=== PATIENT | female | born 1955 | race Caucasian/White ===

== ENCOUNTER 2016-05-04 17:21 | Inpatient (IN) ==
[2016-05-04] MEDS ORDERED: 0.9 % Sodium Chloride 1,000 ML IVC ONE ×2 (17:41→18:24)
[2016-05-04] MEDS ORDERED: Ipratropium/Albuterol Neb 3 ML IH ONE (17:44)
[2016-05-04] MEDS ORDERED: Ondansetron 4 MG/2 ML VIAL IVP ONE (17:45)
[2016-05-04] MEDS ORDERED: methylPREDNISolone 125 MG/2 ML VIAL IVP ONE (17:45)
--- NOTE | 2016-05-04 17:49 | Emergency Department Note ---
Disposition Clinical Impression: Community acquired pneumonia, COPD exacerbation, Hypoxia Sepsis Qualifiers: Sepsis type: sepsis due to unspecified organism Qualified Code(s): A41.9 - Sepsis, unspecified organism Disposition: Admitted As Inpatient Condition: Serious Time of Disposition: 19:03 SOB HPI - General Chief Complaint: ED Shortness of Breath/Dyspnea Stated Complaint: MARGARET Time Seen by Provider: 05/04/16 17:33 Source: patient, family Limitations: no limitations Nursing Notes Reviewed: Yes Vital Signs Reviewed: Yes - History of Present Illness Patient is a 60-year-old female complains of shortness of breath and productive cough times last night. Patient presents with irregular vital signs of tachycardia 113 bpm, and fever 102.5 and O2 sat of 88% on room air. history of COPD and arrhythmia has pacemaker in place. Patient states she started coughing last night sometime between 8:10 PM which has been productive of green sputum, along with sinus pressure worsened with cough. Patient also states she is having a headache with coughing. Patient's on 3 L oxygen at home. Patient's surveyor hydrographic is Dr. Rojas, patient's primary doctor is Dr. Hickman, - Related Data Home Medications Medication Instructions Recorded Confirmed Atorvastatin [Lipitor] 40 mg PO QAM 12/25/14 05/04/16 Buprenorphine HCl/Naloxone HCl 1 each PO BID 12/25/14 05/04/16 [Suboxone 8 mg-2 mg Sl Film] Diltiazem HCl [Diltiazem 24Hr Cd] 240 mg PO QAM 12/25/14 05/04/16 Lisinopril [Zestril] 40 mg PO QAM 12/25/14 05/04/16 Aclidinium [place] [Tudorza 1 puff IH BID 05/04/16 05/04/16 Pressair] Albuterol Sulfate [Ventolin Hfa] 2 puff IH Q4HR PRN 05/04/16 05/04/16 Omeprazole [PriLOSEC] 40 mg PO DAILY 05/04/16 05/04/16 Tiotropium [Spiriva] 18 mcg IH 0700 05/04/16 05/04/16 Previous Rx's Medication Instructions Recorded Aspirin Enteric Coated [Aspirin EC] 81 mg PO DAILY #30 tablet. 12/28/14 Allergies Allergy/AdvReac Type Severity Reaction Status Date / Time No Known Allergies Allergy Verified 12/25/14 15:38 All systems ED: reviewed and negative except as stated. Constitutional: Reports: fever. Denies: chills, weakness Eyes: Denies: eye pain, eye discharge, vision change ENT ED: Reports: congestion. Denies: ear pain, throat pain Cardiovascular: Denies: chest pain, palpitations, syncope Respiratory: Reports: cough, dyspnea, sputum production (Green and chunky). Denies: wheezes Gastrointestinal: Denies: abdominal pain, nausea, vomiting, diarrhea Genitourinary: Denies: urgency, dysuria Past Medical History - Past Medical History Attestation: Yes The following information was validated with the patient. Source: patient Medical history: Reports: arthritis, asthma, COPD, GERD, hypertension, other Surgical history: Reports: hysterectomy (for cervical carcer.), orthopedic, other (right rotator cuff repair.), pacemaker/AICD (for complete heart block), thyroidectomy (for goiter) Psychiatric history: Reports: anxiety IMAGING CENTER MANAGER history: Reports: no IMAGING CENTER MANAGER history, bilateral tubal ligation - Social History Smoking Status: Current every day smoker Smokeless Tobacco Status: No Alcohol use: Reports: occasionally Drug use: Reports: none Physical Exam Vital Signs Temperature 102.5 F H 05/04/16 17:22 Pulse Rate 119 05/04/16 17:22 Respiratory Rate 20 05/04/16 17:22 Blood Pressure 109/68 05/04/16 17:22 O2 Sat by Pulse Oximetry 88 L 05/04/16 17:22 Temperature 102.5 F H 05/04/16 17:22 Pulse Rate 119 05/04/16 17:22 Respiratory Rate 20 05/04/16 17:22 Blood Pressure 109/68 05/04/16 17:22 O2 Sat by Pulse Oximetry 88 L 05/04/16 17:22 -General Appearance: Patient is a 60-year-old female alert and oriented 3 does not appear to be in acute distress but has an O2 sat 88% requiring oxygen to keep her sats above 90. -Neurological exam: Cranial nerves II-12 intact, no focal deficits observed, strength equal 5/5 bilaterally in upper and lower extremities - Head Head exam: atraumatic, normocephalic, normal inspection - Eye Eye exam: Present: normal appearance, PERRL, EOMI, negative for scleral icterus negative for conjunctival pallor - ENT ENT exam: normal exam, normal oropharynx, mucous membranes dry - Neck Neck exam: Present: normal inspection, full ROM, trachea midline, negative JVD - Chest Chest inspection: Present: Patient has bilateral equal rise and fall of chest wall. Non-tender to palpation. - Respiratory Respiratory exam: Poor air movement upon auscultation of bilateral lung wang up her lower. Cardiovascular Cardiovascular exam: Present: irregular rate, normal rhythm, normal heart sounds , without murmurs rubs or gallops. - Abdominal Exam Abdominal exam: Present: soft, nondistended, Non-Tender light and deep palpation in all quadrants. Bowel sounds normoactive throughout all 4 quadrants. Negative for hyper or hyperresonance. - Extremities Exam Extremities exam: Present: normal inspection, full ROM - Back Exam Back exam: Present: normal inspection, full ROM. Absent: tenderness, CVA tenderness (R), CVA tenderness (L) - Psychiatric Psychiatric exam: Present: normal affect, normal mood - Skin Skin exam: Present: warm, dry, intact, normal color - General Limitations: no limitations General appearance: alert, in no apparent distress Course Course Narrative: Patient seen and examined. Full sepsis workup initiated. DuoNeb 3 and Solu- Medrol 125 mg ordered, 2 L normal saline IV ordered - Reevaluation(s) Reevaluation #1: Patient's having labs drawn and cultures drawn currently. An IV is being set up. Patient has no complaints at this time O2 sat stable on 3 L at 92% Time: 17:55 Reevaluation #2: Patient's cultures are pending from. Checks x-ray shows bilateral emphysema. Patient's suspicious for pneumonia. Patient's WBC is elevated at 15.5. Patient has 3 of 4 for SIRS criteria. Time: 18:20 - Consultations Consultation #1: Dr. Martino has accepted for admission. Time: 19:00 Vital Signs Temperature 102.5 F H 05/04/16 17:22 Pulse Rate 119 05/04/16 17:22 Respiratory Rate 20 05/04/16 17:22 Blood Pressure 109/68 05/04/16 17:22 O2 Sat by Pulse Oximetry 88 L 05/04/16 17:22 Temperature 97.3 F L 05/05/16 04:00 Pulse Rate 64 05/05/16 04:00 Respiratory Rate 18 05/05/16 04:00 Blood Pressure 95/62 05/05/16 04:00 O2 Sat by Pulse Oximetry 94 L 05/05/16 04:00 Oxygen Delivery Oxygen Delivery Nasal Cannula Shortness of Breath/Dyspnea - MDM Narrative Medical decision making narrative: Ms. Perry is a 60-year-old female complains of cough times last night was condition is concerning for COPD exacerbation secondary to infection. Patient has a SIRS criteria for Phoebe tachycardia. Sepsis workup has been initiated. Plan for admission. CBC shows a WBC of 15.5. Patient has hyponatremia 127. Patient's was started on IV therapy of 0.9% normal saline 2 L, DuoNeb 3, and 125 mg of Solu-Medrol. Patient's chest x-ray does not show signs of pneumonia but clinically patient appears to have some pulmonary infection process going on. The patient for COPD exacerbation secondary to community acquired pneumonia with signs of early sepsis and hypoxia and started patient on 2 g of ceftriaxone and 500 mg of azithromycin. Considered PE as well patient's workup. The patient is low risk for PE at this time. If patient's clinical condition worsens with no clear source of infection. Recommend PE workup. Patient is accepted for admission by Dr. Martino. - Medical Records Medical records reviewed: Yes I reviewed the patient's medical records. - Lab Data Lab results reviewed: Yes I reviewed the patient's lab results. Lab results narrative: Short CBC 05/04/16 Range/Units 18:04 WBC 15.5 H (4.3-11.1) K/mcL Hgb 12.6 (11.5-15.4) g/dL Hct 37.4 (35.3-44.9) % Plt Count 312 (140-400) K/mcL Neutrophils # 12.3 H (1.6-8.9) K/mcL BMP 05/04/16 Range/Units 18:04 Sodium 127 L (136-145) mEq/L Potassium 4.1 (3.5-4.5) mEq/L Chloride 93 L (98-109) mEq/L Carbon Dioxide 22 (19-29) mEq/L BUN 6 L (7-20) mg/dL Creatinine 0.72 (0.57-1.11) mg/dL Glucose 96 (70-99) mg/dL Calcium 9.0 (8.6-10.8) mg/dL Cardiac Enzymes 05/04/16 Range/Units 18:04 Troponin I 0.01 (0-0.03) ng/mL Liver Function 05/04/16 Range/Units 18:04 Total Bilirubin 0.5 (0.2-1.2) mg/dL Direct Bilirubin 0.2 (0.0-0.5) mg/dL AST 28 (5-34) Units/L ALT 20 (0-55) Units/L Alkaline Phosphatase 91 (38-126) Units/L Albumin 3.6 (3.5-5.0) g/dL Result diagrams: 05/05/16 04:20 05/05/16 04:20 Lab Results 05/04/16 05/04/16 05/04/16 Range/Units 18:04 18:04 18:04 WBC 15.5 H (4.3-11.1) K/mcL RBC 3.98 (3.82-4.97) M/mcL Hgb 12.6 (11.5-15.4) g/dL Hct 37.4 (35.3-44.9) % MCV 94.0 (83.0-100.0) fL MCH 31.7 (28.0-33.3) pg MCHC 33.7 (31.6-35.5) g/dL RDW 11.8 (11.5-14.5) % Plt Count 312 (140-400) K/mcL MPV 9.1 L (9.4-12.4) fL Immature Gran % 0.5 (0-4) % Seg Neutrophils % 79.4 % Lymphocytes % 9.2 % Monocytes % 10.7 % Eosinophils % 0.0 % Basophils % 0.2 % Neutrophils # 12.3 H (1.6-8.9) K/mcL Lymphocytes # 1.4 (0.6-4.6) K/mcL Monocytes # 1.7 H (0.0-1.3) K/mcL Eosinophils # 0.0 (0.0-0.6) K/mcL Basophils # 0.0 (0.0-0.2) K/mcL PT 11.6 (9.4-12.1) Seconds INR 1.1 APTT 29.2 (26.0-36.0) Seconds Sodium 127 L (136-145) mEq/L Potassium 4.1 (3.5-4.5) mEq/L Chloride 93 L (98-109) mEq/L Carbon Dioxide 22 (19-29) mEq/L BUN 6 L (7-20) mg/dL Creatinine 0.72 (0.57-1.11) mg/dL Est GFR ( Amer) > 60 (> 60) Est GFR (Non-Af Amer) > 60 (> 60) BUN/Creatinine Ratio 8 (6-26) Glucose 96 (70-99) mg/dL Calculated Osmolality 261 L (280-300) Lactic Acid (0.5-2.2) mmol/L Calcium 9.0 (8.6-10.8) mg/dL Phosphorus 3.4 (2.3-4.7) mg/dL Magnesium 1.6 (1.6-2.6) mg/dL Total Bilirubin 0.5 (0.2-1.2) mg/dL Direct Bilirubin 0.2 (0.0-0.5) mg/dL Indirect Bilirubin 0.3 (0.0-1.2) mg/dL AST 28 (5-34) Units/L ALT 20 (0-55) Units/L Alkaline Phosphatase 91 (38-126) Units/L Troponin I (0-0.03) ng/mL Serum Total Protein 7.8 (6.0-8.3) g/dL Albumin 3.6 (3.5-5.0) g/dL Globulin 4.2 H (2.4-3.5) g/dL Albumin/Globulin Ratio 0.9 L (1.1-2.2) 05/04/16 05/04/16 05/04/16 Range/Units 18:04 18:04 18:26 WBC (4.3-11.1) K/mcL RBC (3.82-4.97) M/mcL Hgb (11.5-15.4) g/dL Hct (35.3-44.9) % MCV (83.0-100.0) fL MCH (28.0-33.3) pg MCHC (31.6-35.5) g/dL RDW (11.5-14.5) % Plt Count (140-400) K/mcL MPV (9.4-12.4) fL Immature Gran % (0-4) % Seg Neutrophils % % Lymphocytes % % Monocytes % % Eosinophils % % Basophils % % Neutrophils # (1.6-8.9) K/mcL Lymphocytes # (0.6-4.6) K/mcL Monocytes # (0.0-1.3) K/mcL Eosinophils # (0.0-0.6) K/mcL Basophils # (0.0-0.2) K/mcL PT (9.4-12.1) Seconds INR APTT (26.0-36.0) Seconds Sodium (136-145) mEq/L Potassium (3.5-4.5) mEq/L Chloride (98-109) mEq/L Carbon Dioxide (19-29) mEq/L BUN (7-20) mg/dL Creatinine (0.57-1.11) mg/dL Est GFR ( Amer) (> 60) Est GFR (Non-Af Amer) (> 60) BUN/Creatinine Ratio (6-26) Glucose (70-99) mg/dL Calculated Osmolality (280-300) Lactic Acid 1.5 1.1 (0.5-2.2) mmol/L Calcium (8.6-10.8) mg/dL Phosphorus (2.3-4.7) mg/dL Magnesium (1.6-2.6) mg/dL Total Bilirubin (0.2-1.2) mg/dL Direct Bilirubin (0.0-0.5) mg/dL Indirect Bilirubin (0.0-1.2) mg/dL AST (5-34) Units/L ALT (0-55) Units/L Alkaline Phosphatase (38-126) Units/L Troponin I 0.01 (0-0.03) ng/mL Serum Total Protein (6.0-8.3) g/dL Albumin (3.5-5.0) g/dL Globulin (2.4-3.5) g/dL Albumin/Globulin Ratio (1.1-2.2) - Radiology Data Radiology results reviewed: Yes I reviewed the patient's radiology results. Chest X-Ray 05/04/16 17:42 IMPRESSION: No acute cardiopulmonary process. Emphysema. D/ / 05/04/2016 18:43:12 Tawana Lizarraga MD / [facility] Interpreting Provider: Tawana Lizarraga MD - EKG Data EKG attestation: Yes I reviewed and interpreted this EKG. EKG results narrative: EKG taken 2016 at 1817 hrs. shows a ventricularly paced rhythm is tachycardic at 110 bpm
[2016-05-04] MEDS ORDERED: Azithromycin 500 MG in D5% in Water 250 ML IVPB ONE (17:58)
--- NOTE | 2016-05-04 18:04 | Emergency Department Note ---
START Narrative - START START: I examined this patient and my medical decision-making was reviewed with the STEEPLECHASE JOCKEY/PA/Advanced Practice Nurse/Resident Physician. I agree with the documented findings, disposition and treatment plan as described except to the extent set forth below. Patient emergency department divining a cough shortness of breath. Onset last night. Patient is a history of COPD and still smokes a half-pack a day. Last admission was last summer. Patient on antibiotics since and has not required admission. She wears home O2. On examination she is awake and alert. Lungs are diminished. She is febrile and meets SIRS criteria. Plan. Septic workup. IV fluids. Nebs and steroids. Will admit.
[2016-05-04 18:15] LABS: Basophils % 0.2 %; Hematocrit 37.4 % (35.3-44.9); Hemoglobin 12.6 g/dL (11.5-15.4); Immature Granulocytes % 0.5 % (0-4); Lymphocytes # 1.4 K/mcL (0.6-4.6); Lymphocytes % 9.2 %; Mean Corpuscular HGB Conc 33.7 g/dL (31.6-35.5); Mean Corpuscular Hemoglobin 31.7 pg (28.0-33.3); Mean Platelet Volume 9.1 fL (9.4-12.4); Monocytes # 1.7 K/mcL (0.0-1.3); Monocytes % 10.7 %; Neutrophils # 12.3 K/mcL (1.6-8.9); Platelet Count 312 K/mcL (140-400); Red Blood Count 3.98 M/mcL (3.82-4.97); Red Cell Distribution Width 11.8 % (11.5-14.5); Segmented Neutrophils % 79.4 %
[2016-05-04 18:23] LABS: INR 1.1; Prothrombin Time 11.6 Seconds (9.4-12.1)
[2016-05-04 18:26] LABS: Activated Partial Thrombo Time 29.2 Seconds (26.0-36.0)
[2016-05-04 18:28] LABS: Alanine Aminotransferase 20 Units/L (0-55); Albumin 3.6 g/dL (3.5-5.0); Albumin/Globulin Ratio 0.9 (1.1-2.2); Alkaline Phosphatase 91 Units/L (38-126); Aspartate Amino Transferase 28 Units/L (5-34); BUN/Creatinine Ratio 8 (6-26); Bilirubin,Direct 0.2 mg/dL (0.0-0.5); Bilirubin,Indirect 0.3 mg/dL (0.0-1.2); Bilirubin,Total 0.5 mg/dL (0.2-1.2); Blood Urea Nitrogen 6 mg/dL (7-20); Carbon Dioxide 22 mEq/L (19-29); Chloride 93 mEq/L (98-109); Globulin 4.2 g/dL (2.4-3.5); Glucose 96 mg/dL (70-99); Magnesium 1.6 mg/dL (1.6-2.6); Osmolality,Calculated 261 (280-300); Phosphorous 3.4 mg/dL (2.3-4.7); Potassium 4.1 mEq/L (3.5-4.5); Sodium 127 mEq/L (136-145); Total Protein 7.8 g/dL (6.0-8.3); eGFR For African Americans > 60 (> 60); eGFR For Non-African Americans > 60 (> 60)
[2016-05-04] MEDS ORDERED: Levofloxacin 500 MG/100 ML 500 MG/100 ML BAG IVPB ONE (18:55)
[2016-05-04] MEDS ORDERED: Ondansetron 4 MG/2 ML VIAL IVP PRN (19:19)
[2016-05-04] MEDS ORDERED: *HR* Morphine 2 MG/ML SYRINGE IVP PRN (19:19)
[2016-05-04] MEDS ORDERED: Naloxone 0.4 MG/ML INJ IVP PRN (19:19)
[2016-05-04] MEDS ORDERED: *HR* HYDROcodone/Acet 5/325 mg TABLET PO PRN (19:19)
[2016-05-04] MEDS ORDERED: Acetaminophen 325 MG TABLET PO PRN (19:19)
--- NOTE | 2016-05-04 20:20 | Internal Med History&Physical ---
Date of Encounter: 05/04/16 Time of Encounter: 20:18 Assessment and Plan (1) Sepsis Current visit: Yes Status: Acute Tmax 102.5, with tachycardia, Leukocytosis with left shift, no lactate, BP is WNL. No thrombocytopenia Probable source is pulmonary , with suspected Community acquired pneumonia Follow blood culture Obtain sputum culture Urine for legionella and streptococcal antige Tylenol for fever Continue Ceftriaxone 2g daily, and Azithromycin 500mg IVPB daily Duonebs q4hs Prednisone po IVF hydration Monitor closely High risk due to sepsis with risk of decompensation to severe sepsis and septic shock. Also associated with hypoxemic respiratory failure at risk of mechanical intubation Patient is full code Qualifiers: Sepsis type: sepsis due to unspecified organism Qualified Code(s): A41.9 - Sepsis, unspecified organism (2) Acute respiratory failure with hypoxia Current visit: Yes Status: Acute Improved with supplemental O2, continue same (3) Community acquired pneumonia Current visit: Yes Status: Acute Probable pneumonia, community acquired based on history an d presentation CXR with emphysema. (4) COPD exacerbation Current visit: Yes Status: Acute (5) HLD (hyperlipidemia) Current visit: Yes Status: Chronic resume home meds Qualifiers: Hyperlipidemia type: unspecified Qualified Code(s): E78.5 - Hyperlipidemia , unspecified (6) HTN (hypertension) Current visit: Yes Status: Chronic Resume home meds Qualifiers: Hypertension type: essential hypertension Qualified Code(s): I10 - Essential (primary) hypertension (7) Hyponatremia Current visit: Yes Status: Acute Acute on chronic hypoosmolar Check UA, IVF hydration Monitor Chem (8) ELIUD (obstructive sleep apnea) Current visit: Yes Status: Chronic BiPAP at night (9) Opiate dependence Current visit: Yes Status: Chronic Resume home dose of suboxone Qualifiers: Substance use status: uncomplicated Qualified Code(s): F11.20 - Opioid dependence, uncomplicated (10) Presence of cardiac pacemaker Current visit: Yes Status: Chronic Secondary to complete heart block in 2008 (11) Alcohol abuse Current visit: Yes Status: Chronic No hx if withdrawal, monitor for same (12) Tobacco abuse Current visit: Yes Status: Chronic Refuses NRT Cessation encouraged Internal Medicine - H&P: HPI Chief complaint: Cough Admitted From: Home Plans for Post Hospital Care: Home History of present illness: Ms. Perry is a 60 year old female PMH of COPD on home O2, current smoker, HTN, HLD, ELIUD, Complete heart block s/p PCM Presented to ER with complains of cough productive of thick greenish sputum, fever with chills and shortness of breath worse than baseline. She also reports increasing oxygen requirements at home. Positive history of sick contacts, no preceding flu-like symptoms, she has no received Flu shot this season She denies chest pain, palpitations, nausea, vomiting, night sweats, no change in bowel or urinary habits Past Med Surg Social Fam HX - Past Medical History Medical history: arthritis, asthma, COPD, GERD, hypertension, other Psychiatric history: anxiety - Past Surgical History Surgical History: hysterectomy (for cervical carcer.), orthopedic, other (right rotator cuff repair.), pacemaker/AICD (for complete heart block), thyroidectomy (for goiter) - Social History Smoking Status: Current every day smoker Smokeless Tobacco Status: No Alcohol use: occasionally Drug use: none - Family History Mother Living Status: Still Living Hx Family Cardiac Disorders: Yes Hx Family Respiratory Disorders: Yes Hx Family Cancer: Yes Hx Family Neuromuscular Disorders: (parkinsons) Father Living Status: Hx Family Cardiac Disorders: Yes Internal Medicine - H&P: Meds Atorvastatin [Lipitor] 40 mg PO QAM 12/25/14 [History] Buprenorphine HCl/Naloxone HCl [Suboxone 8 mg-2 mg Sl Film] 1 each PO BID [History] Diltiazem HCl [Diltiazem 24Hr Cd] 240 mg PO QAM 12/25/14 [History] Lisinopril [Zestril] 40 mg PO QAM 12/25/14 [History] Aspirin Enteric Coated [Aspirin EC] 81 mg PO DAILY #30 tablet. 12/28/14 [Rx] Aclidinium [place] [Tudorza Pressair] 1 puff IH BID 05/04/16 [History] Albuterol Sulfate [Ventolin Hfa] 2 puff IH Q4HR PRN 05/04/16 [History] Omeprazole [PriLOSEC] 40 mg PO DAILY 05/04/16 [History] Tiotropium [Spiriva] 18 mcg IH 0700 05/04/16 [History] Allergies No Known Allergies Allergy (Verified 12/25/14 15:38) All Systems PM: A 10-system review of systems was performed and is negative for pertinent findings except as documented above in the HPI. - Constitutional Constitutional: chills, fever(s), lethargy - EENT Eyes: no change in vision, no discharge, no pain, no photophobia Ears: no ear discharge, no ear pain, no tinnitus Nose, mouth and throat: no dysphagia, no nasal discharge, no neck pain, no sore throat - Cardiovascular Cardiovascular ROS IM: no chest pain, no diaphoresis, no dyspnea, no lightheadedness, no palpitations, no syncope - Respiratory Respiratory: as per HPI - Gastrointestinal Gastrointestinal: no abdominal pain, no diarrhea, no hematemesis, no hematochezia, no melena, no nausea, no vomiting - Genitourinary Genitourinary: no change in urinary stream, no dysuria, no flank pain, no hematuria - Musculoskeletal Musculoskeletal ROS IM: no numbness, no tingling - Integumentary Integumentary IM: no rash, no unusual bruising - Neurological Neurological ROS: no confusion, no convulsions, no focal weakness, no numbness, no tingling, no tremor(s) - Hematologic/Lymphatic Hematologic/Lymphatic: no easy bruising - Constitutional Vitals: Temp Pulse Resp BP Pulse Ox 102.5 F H 103 18 112/69 93 L 05/04/16 17:22 05/04/16 18:50 05/04/16 19:39 05/04/16 19:39 05/04/16 18:50 General appearance: Present: A&O X 3, pleasant, no acute distress - Head Head exam: Present: atraumatic, normocephalic - Eye Eye exam: Present: PERRL, conjuntiva pink, sclera anicteric Pupils: Present: PERRL - Neck Neck exam general surgery: Present: supple, trachea midline. Absent: lymphadenopathy - Respiratory Respiratory exam: Present: wheezes - Cardiovascular Cardiovascular exam: Present: RRR, +S1, +S2. Absent: diastolic murmur, gallop, rubs, systolic murmur Additional comments: PCM on chest wall, pocket not tender, no erythema - GI/Abdominal GI/Abdominal exam: Present: normal bowel sounds, soft, no peritoneal signs. Absent: distended, tenderness - Extremities Exam Extremities exam: Present: warm, radial pulses palpable and symetrical. Absent : calf tenderness, cyanotic, pedal edema - Neurological Exam Neurological exam: Present: CN II-XII intact, oriented X3, no focal deficits. Absent: pronater drift, facial droop, speech deficit - Skin Skin exam: Present: dry, intact Internal Med - H&P Results - Labs CBC & Chem 7: 05/04/16 18:04 05/04/16 18:04
[2016-05-04] MEDS: Ipratropium/Albuterol Neb 3 ML IH SCH ×2 (20:34→23:36)
[2016-05-04] MEDS: BUPRENORPHINE PO SCH (22:02)
[2016-05-04] MEDS: NALOXONE PO SCH (22:02)
[2016-05-04] MEDS: TUDORZA IH SCH (22:03)
[2016-05-04] MEDS: 0.9 % Sodium Chloride 1,000 ML IVC SCH (22:13)
[2016-05-05] MEDS: Ipratropium/Albuterol Neb 3 ML IH SCH ×6 (03:26→23:22)
[2016-05-05 05:05] LABS: Basophils % 0.1 %; Hemoglobin 11.1 g/dL (11.5-15.4); Immature Granulocytes % 0.6 % (0-4); Lymphocytes # 0.9 K/mcL (0.6-4.6); Lymphocytes % 6.3 %; Mean Corpuscular HGB Conc 33.6 g/dL (31.6-35.5); Mean Corpuscular Hemoglobin 32.2 pg (28.0-33.3); Mean Corpuscular Volume 95.7 fL (83.0-100.0); Mean Platelet Volume 9.4 fL (9.4-12.4); Monocytes # 0.4 K/mcL (0.0-1.3); Neutrophils # 12.1 K/mcL (1.6-8.9); Platelet Count 254 K/mcL (140-400); Red Blood Count 3.45 M/mcL (3.82-4.97); Red Cell Distribution Width 11.9 % (11.5-14.5)
[2016-05-05 05:15] LABS: BUN/Creatinine Ratio 11 (6-26); Blood Urea Nitrogen 6 mg/dL (7-20); Calcium 8.1 mg/dL (8.6-10.8); Carbon Dioxide 21 mEq/L (19-29); Chloride 102 mEq/L (98-109); Glucose 198 mg/dL (70-99); Osmolality,Calculated 277 (280-300); Sodium 132 mEq/L (136-145); eGFR For African Americans > 60 (> 60); eGFR For Non-African Americans > 60 (> 60)
[2016-05-05 05:20] LABS: Potassium 3.8 mEq/L (3.5-4.5)
[2016-05-05] MEDS: *HR* Enoxaparin 40 MG/0.4 ML SYRINGE SQ SCH (05:20)
[2016-05-05 05:43] LABS: Bilirubin,Urine Negative (Negative); Blood,Urine Negative (Negative); Clarity,Urine Clear (Clear); Color,Urine Yellow (Yellow); Glucose,Urine (UA) 250 mg/dL (Normal); Ketones,Urine Negative (Negative); Leukocyte Esterase,Urine Negative (Negative); Nitrite,Urine Negative (Negative); Protein,Urine Negative (Neg-Trace); Specific Gravity,Urine 1.006 (1.010-1.025); Urobilinogen,Urine Normal (Normal)
[2016-05-05] MEDS: 0.9 % Sodium Chloride 1,000 ML IVC SCH ×2 (08:08→20:18)
[2016-05-05] MEDS: NALOXONE PO SCH ×2 (08:17→20:20)
[2016-05-05] MEDS: TUDORZA IH SCH ×2 (08:17→20:20)
[2016-05-05] MEDS: BUPRENORPHINE PO SCH ×2 (08:17→20:20)
[2016-05-05] MEDS: Aspirin Enteric Coated 81 MG Tablet PO SCH (08:17)
[2016-05-05] MEDS: predniSONE 20 MG TABLET PO SCH (08:18)
--- NOTE | 2016-05-05 08:37 | Internal Med Progress Note ---
<Alexis Gay - Last Filed: 05/05/16 15:45> Date of Encounter: 05/05/16 Time of Encounter: 08:37 - Assessment and plan (1) Community acquired pneumonia Current Visit: Yes Status: Acute Assessment and plan: Sepsis resolved, con't IV abxs, clinically improving, leukocytosis trending down. (2) Sepsis Current Visit: Yes Status: Acute Assessment and plan: Initially she had fever, leukocytosis, tachycardia and tachypnea, now resolved, 2/2 CAP, con't IV abxs, respi virus panel was negative for flu but positive for coronavirus, will stop tamiflu. Qualifiers: Sepsis type: sepsis due to unspecified organism Qualified Code(s): A41.9 - Sepsis, unspecified organism (3) COPD exacerbation Current Visit: Yes Status: Acute Assessment and plan: Con't duoneb, oxygen support, po steroid and iv abxs. (4) Opiate dependence Current Visit: Yes Status: Chronic Assessment and plan: She is on suboxone at home, she needs to bring her own meds since we do not carry it, avoid narcotics. Qualifiers: Substance use status: uncomplicated Qualified Code(s): F11.20 - Opioid dependence, uncomplicated (5) Tobacco abuse Current Visit: Yes Status: Chronic Assessment and plan: Smoking cessation education given. (6) DVT prophylaxis Current Visit: No Status: Acute Assessment and plan: Lovenox SQ. - Subjective Interval history: Pt seen and examined, feels much better than yesterday, still having productive cough, fever resolved. - Constitutional Vitals: Temp Pulse Resp BP Pulse Ox 97.6 F 65 18 106/68 97 05/05/16 07:44 05/05/16 07:44 05/05/16 07:44 05/05/16 07:44 05/05/16 07:44 General appearance: Present: A&O X 3, pleasant, no acute distress - Head Head exam: Present: atraumatic, normocephalic - Eye Eye exam: Present: PERRL, conjuntiva pink, sclera anicteric Pupils: Present: PERRL - Neck Neck exam general surgery: Present: supple, trachea midline. Absent: lymphadenopathy - Respiratory Respiratory exam: Present: decreased breath sounds (diffusely), wheezes (at base b/l). Absent: accessory muscle use, rales, rhonchi - Cardiovascular Cardiovascular exam: Present: RRR, +S1, +S2. Absent: diastolic murmur, gallop, rubs, systolic murmur - GI/Abdominal GI/Abdominal exam: Present: normal bowel sounds, soft, no peritoneal signs. Absent: distended, tenderness - Extremities Exam Extremities exam: Present: warm, radial pulses palpable and symetrical. Absent : calf tenderness, cyanotic, pedal edema - Neurological Exam Neurological exam: Present: CN II-XII intact, oriented X3, no focal deficits. Absent: pronater drift, facial droop, speech deficit - Skin Skin exam: Present: dry, intact Internal Medicine: Result - Labs CBC & Chem 7: 05/05/16 04:20 05/05/16 04:20 Labs: Short CBC 05/05/16 Range/Units 04:20 WBC 13.4 H (4.3-11.1) K/mcL Hgb 11.1 L D (11.5-15.4) g/dL Hct 33.0 L (35.3-44.9) % Plt Count 254 (140-400) K/mcL Neutrophils # 12.1 H (1.6-8.9) K/mcL BMP 05/05/16 04:20 Sodium 132 L Potassium 3.8 Chloride 102 Carbon Dioxide 21 BUN 6 L Creatinine 0.57 Glucose 198 H Calcium 8.1 L Urine 05/05/16 Range/Units 05:30 Urine Color Yellow (Yellow) Urine Clarity Clear (Clear) Urine pH 6.0 (5.0-8.0) pH Units Ur Specific [place] 1.006 L (1.010-1.025) Urine Protein Negative (Neg-Trace) mg/dL Urine Glucose (UA) 250 H (Normal) mg/dL - ABG Interpretation ABG results: PT/INR, D-dimer PT 11.6 Seconds (9.4-12.1) 05/04/16 18:04 Consult Discharge Plan - Plan Referrals: Mayra Ma MD [Primary Care Provider] - <Kip Xiao - Last Filed: 05/05/16 19:31> Date of Encounter: 05/05/16 - Assessment and plan (1) Acute and chronic respiratory failure with hypoxia Current Visit: Yes Status: Acute (2) COPD exacerbation Current Visit: Yes Status: Acute (3) Opiate dependence Current Visit: Yes Status: Chronic Qualifiers: Substance use status: uncomplicated Qualified Code(s): F11.20 - Opioid dependence, uncomplicated (4) Tobacco abuse Current Visit: Yes Status: Chronic - Constitutional Vitals: Temp Pulse Resp BP Pulse Ox 98.1 F 69 18 100/57 91 L 05/05/16 16:18 05/05/16 16:18 05/05/16 16:21 05/05/16 16:18 05/05/16 16:21 Internal Medicine: Result - Labs CBC & Chem 7: 05/05/16 04:20 05/05/16 04:20 Labs: Short CBC 05/05/16 Range/Units 04:20 WBC 13.4 H (4.3-11.1) K/mcL Hgb 11.1 L D (11.5-15.4) g/dL Hct 33.0 L (35.3-44.9) % Plt Count 254 (140-400) K/mcL Neutrophils # 12.1 H (1.6-8.9) K/mcL BMP 05/05/16 04:20 Sodium 132 L Potassium 3.8 Chloride 102 Carbon Dioxide 21 BUN 6 L Creatinine 0.57 Glucose 198 H Calcium 8.1 L Urine 05/05/16 Range/Units 05:30 Urine Color Yellow (Yellow) Urine Clarity Clear (Clear) Urine pH 6.0 (5.0-8.0) pH Units Ur Specific [place] 1.006 L (1.010-1.025) Urine Protein Negative (Neg-Trace) mg/dL Urine Glucose (UA) 250 H (Normal) mg/dL - ABG Interpretation ABG results: ABG ABG pH 7.45 pH Units (7.32-7.45) 05/05/16 11:08 ABG pCO2 37 mmHg (35-45) 05/05/16 11:08 ABG pO2 64 mmHg (85-104) L 05/05/16 11:08 ABG O2 Saturation 93 % (95-98) L 05/05/16 11:08 PT/INR, D-dimer PT 11.6 Seconds (9.4-12.1) 05/04/16 18:04 - Attending Attestation I examined this patient and my medical decision-making was reviewed with the Resident Physician on 05/05/16. I agree with the documented findings, disposition and treatment plan as described except to the extent set forth below. Ms. Perry is currently admitted for acute respiratory failure due to pneumonia/COPD. She remains moderate risk due to potential of worsening respiratory symptoms. Ms. Perry is feeling somewhat better after abx. Still with a lot of cough - productive. No fever now. No aches. Still with headache. Exam Alert. Mod distress with cough. Heart reg Wheeze present No edema I/P 1. Acute on chronic hypoxic resp failure due to COPD, ? PNA 2. Sepsis improving 3. Opiate dependence on Suboxone 4. Tobacco abuse 5. COPD Further diagnoses and plan as above.
[2016-05-05] MEDS ORDERED: D5% in Water 1,000 ML IV PRN (08:38)
[2016-05-05] MEDS ORDERED: Dextrose Gel 15 GM PO PRN ×2 (08:38)
[2016-05-05] MEDS ORDERED: *HR* Dextrose 50 % in Water (Syg) 50 ML SYRINGE IVP PRN (08:38)
[2016-05-05] MEDS ORDERED: Diltiazem CD (24hr) 120 MG CAPSULE PO SCH (09:00)
[2016-05-05] MEDS ORDERED: Lisinopril 20 MG TABLET PO SCH (09:00)
[2016-05-05 09:11] LABS: Hemoglobin A1C 4.9 %
[2016-05-05 11:16] LABS: ABG Base Excess 1.7 mEq/L (-2.0 to 3.0); ABG HCO3 25.7 mEQ/L (21-27); ABG Oxygen Saturation 93 % (95-98); ABG PCO2 37 mmHg (35-45); ABG PH 7.45 pH Units (7.32-7.45); ABG PO2 64 mmHg (85-104); ABG TCO2 26.8 mEq/L (20-26)
[2016-05-05 11:17] LABS: Blood Gas FiO2 32 %
[2016-05-05] MEDS: Benzonatate 100 MG CAPSULE PO SCH ×3 (11:47→20:20)
[2016-05-05] MEDS: Azithromycin 500 MG in D5% in Water 250 ML IVPB SCH (11:47)
--- NOTE | 2016-05-05 14:30 | Electrocardiograph Report ---
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
[2016-05-05 14:55] LABS: Adenovirus Not Detected (Not Detect); Bordetella Pertussis Not Detected (Not Detect); Chlamydophila pneumoniae Not Detected (Not Detect); Coronavirus 229E Not Detected (Not Detect); Coronavirus HKU1 Not Detected (Not Detect); Coronavirus NL63 Not Detected (Not Detect); Coronavirus OC43 ***DETECTED*** (Not Detect); Human Metapneumovirus Not Detected (Not Detect); Human Rhinovirus/Enterovirus Not Detected (Not Detect); Influenza A Subtype 2009 H1 Not Detected (Not Detect); Influenza A Untypeable Not Detected (Not Detect); Influenza B Not Detected (Not Detect); Mycoplasma pneumoniae Not Detected (Not Detect); Parainfluenza Virus 1 Not Detected (Not Detect); Parainfluenza Virus 2 Not Detected (Not Detect); Parainfluenza Virus 3 Not Detected (Not Detect); Parainfluenza Virus 4 Not Detected (Not Detect); Respiratory Syncytial Virus Not Detected (Not Detect)
[2016-05-05] MEDS: Insulin LISPRO 300 UNITS/3 ML VIAL SQ SCH ×3 (17:41→20:18)
[2016-05-06] MEDS: Ipratropium/Albuterol Neb 3 ML IH SCH ×6 (04:07→23:06)
[2016-05-06] MEDS: *HR* Enoxaparin 40 MG/0.4 ML SYRINGE SQ SCH (05:28)
[2016-05-06] MEDS: 0.9 % Sodium Chloride 1,000 ML IVC SCH ×2 (05:29→20:55)
[2016-05-06 05:53] LABS: Basophils % 0.1 %; Hematocrit 31.5 % (35.3-44.9); Hemoglobin 10.3 g/dL (11.5-15.4); Immature Granulocytes % 0.5 % (0-4); Lymphocytes # 1.5 K/mcL (0.6-4.6); Lymphocytes % 7.8 %; Mean Corpuscular HGB Conc 32.7 g/dL (31.6-35.5); Mean Corpuscular Hemoglobin 31.5 pg (28.0-33.3); Mean Corpuscular Volume 96.3 fL (83.0-100.0); Mean Platelet Volume 9.7 fL (9.4-12.4); Monocytes # 0.9 K/mcL (0.0-1.3); Monocytes % 4.8 %; Neutrophils # 16.9 K/mcL (1.6-8.9); Platelet Count 281 K/mcL (140-400); Red Blood Count 3.27 M/mcL (3.82-4.97); Red Cell Distribution Width 11.9 % (11.5-14.5); Segmented Neutrophils % 86.8 %
[2016-05-06 06:08] LABS: BUN/Creatinine Ratio 12 (6-26); Blood Urea Nitrogen 6 mg/dL (7-20); Calcium 7.7 mg/dL (8.6-10.8); Carbon Dioxide 22 mEq/L (19-29); Chloride 107 mEq/L (98-109); Glucose 117 mg/dL (70-99); Osmolality,Calculated 287 (280-300); Potassium 3.3 mEq/L (3.5-4.5); eGFR For African Americans > 60 (> 60); eGFR For Non-African Americans > 60 (> 60)
[2016-05-06 06:11] LABS: Sodium 139 mEq/L (136-145)
[2016-05-06] MEDS: predniSONE 20 MG TABLET PO SCH (08:50)
[2016-05-06] MEDS: Insulin LISPRO 300 UNITS/3 ML VIAL SQ SCH ×4 (08:50→20:57)
[2016-05-06] MEDS: Benzonatate 100 MG CAPSULE PO SCH ×3 (08:50→20:55)
[2016-05-06] MEDS: Aspirin Enteric Coated 81 MG Tablet PO SCH (08:51)
[2016-05-06] MEDS: BUPRENORPHINE PO SCH ×2 (08:54→21:21)
[2016-05-06] MEDS: TUDORZA IH SCH ×2 (08:54→21:21)
[2016-05-06] MEDS: NALOXONE PO SCH ×2 (08:54→21:21)
[2016-05-06] MEDS: Azithromycin 500 MG in D5% in Water 250 ML IVPB SCH (08:54)
--- NOTE | 2016-05-06 09:13 | Internal Med Progress Note ---
<Alexis Gay - Last Filed: 05/06/16 13:32> Date of Encounter: 05/06/16 Time of Encounter: 09:13 - Assessment and plan (1) Community acquired pneumonia Current Visit: Yes Status: Acute Assessment and plan: Clinically worse, still septic, worse leukocytosis, today's two view chest x- ray showed new b/l airspace opacities suspicious for pneumonia, bld and sputum culture negative, will switch to zosyn and levaquin IV. (2) Sepsis Current Visit: Yes Status: Acute Assessment and plan: Worsening leukocytosis, still tachycardic, treat underlying CAP. Qualifiers: Sepsis type: sepsis due to unspecified organism Qualified Code(s): A41.9 - Sepsis, unspecified organism (3) COPD exacerbation Current Visit: Yes Status: Acute Assessment and plan: Con't duoneb, oxygen support, IV steroid and iv abxs. (4) Opiate dependence Current Visit: Yes Status: Chronic Assessment and plan: She is on suboxone at home, she needs to bring her own meds since we do not carry it, avoid narcotics. Qualifiers: Substance use status: uncomplicated Qualified Code(s): F11.20 - Opioid dependence, uncomplicated (5) Tobacco abuse Current Visit: Yes Status: Chronic Assessment and plan: Smoking cessation education given. (6) DVT prophylaxis Current Visit: No Status: Acute Assessment and plan: Lovenox SQ. - Subjective Interval history: Pt seen and examined, no change in SOB and productive cough is somewhat worse, clinically worse. - Constitutional Vitals: Temp Pulse Resp BP Pulse Ox 97.6 F 78 18 129/79 92 L 05/06/16 07:44 05/06/16 07:44 05/06/16 07:55 05/06/16 07:44 05/06/16 07:55 General appearance: Present: cooperative ( ), A&O X 3, pleasant, no acute distress - Head Head exam: Present: atraumatic, normocephalic - Eye Eye exam: Present: PERRL, conjuntiva pink, sclera anicteric Pupils: Present: PERRL - Neck Neck exam general surgery: Present: supple, trachea midline. Absent: lymphadenopathy - Respiratory Respiratory exam: Present: CTAB. Absent: accessory muscle use, rales, rhonchi, wheezes - Cardiovascular Cardiovascular exam: Present: RRR, +S1, +S2. Absent: diastolic murmur, gallop, rubs, systolic murmur - GI/Abdominal GI/Abdominal exam: Present: normal bowel sounds, soft, no peritoneal signs. Absent: distended, tenderness - Extremities Exam Extremities exam: Present: warm, radial pulses palpable and symetrical. Absent : calf tenderness, cyanotic, pedal edema - Neurological Exam Neurological exam: Present: CN II-XII intact, oriented X3, no focal deficits. Absent: pronater drift, facial droop, speech deficit - Skin Skin exam: Present: dry, intact Internal Medicine: Result - Labs CBC & Chem 7: 05/06/16 04:57 05/06/16 04:57 Labs: Short CBC 05/06/16 Range/Units 04:57 WBC 19.5 H (4.3-11.1) K/mcL Hgb 10.3 L (11.5-15.4) g/dL Hct 31.5 L (35.3-44.9) % Plt Count 281 (140-400) K/mcL Neutrophils # 16.9 H (1.6-8.9) K/mcL BMP 05/06/16 04:57 Sodium 139 D Potassium 3.3 L Chloride 107 Carbon Dioxide 22 BUN 6 L Creatinine 0.52 L Glucose 117 H Calcium 7.7 L - ABG Interpretation ABG results: ABG ABG pH 7.45 pH Units (7.32-7.45) 05/05/16 11:08 ABG pCO2 37 mmHg (35-45) 05/05/16 11:08 ABG pO2 64 mmHg (85-104) L 05/05/16 11:08 ABG O2 Saturation 93 % (95-98) L 05/05/16 11:08 PT/INR, D-dimer PT 11.6 Seconds (9.4-12.1) 05/04/16 18:04 Consult Discharge Plan - Plan Referrals: Mayra Ma MD [Primary Care Provider] - <Kip Xiao - Last Filed: 05/06/16 18:27> Date of Encounter: 05/06/16 - Assessment and plan (1) Acute and chronic respiratory failure with hypoxia Current Visit: Yes Status: Acute (2) COPD exacerbation Current Visit: Yes Status: Acute (3) Opiate dependence Current Visit: Yes Status: Chronic Qualifiers: Substance use status: uncomplicated Qualified Code(s): F11.20 - Opioid dependence, uncomplicated (4) Tobacco abuse Current Visit: Yes Status: Chronic - Constitutional Vitals: Temp Pulse Resp BP Pulse Ox 97.8 F 93 16 140/94 94 L 05/06/16 15:08 05/06/16 15:08 05/06/16 16:17 05/06/16 15:08 05/06/16 16:17 Internal Medicine: Result - Labs CBC & Chem 7: 05/06/16 04:57 05/06/16 04:57 Labs: Short CBC 05/06/16 Range/Units 04:57 WBC 19.5 H (4.3-11.1) K/mcL Hgb 10.3 L (11.5-15.4) g/dL Hct 31.5 L (35.3-44.9) % Plt Count 281 (140-400) K/mcL Neutrophils # 16.9 H (1.6-8.9) K/mcL BMP 05/06/16 04:57 Sodium 139 D Potassium 3.3 L Chloride 107 Carbon Dioxide 22 BUN 6 L Creatinine 0.52 L Glucose 117 H Calcium 7.7 L - ABG Interpretation ABG results: ABG ABG pH 7.45 pH Units (7.32-7.45) 05/05/16 11:08 ABG pCO2 37 mmHg (35-45) 05/05/16 11:08 ABG pO2 64 mmHg (85-104) L 05/05/16 11:08 ABG O2 Saturation 93 % (95-98) L 05/05/16 11:08 PT/INR, D-dimer PT 11.6 Seconds (9.4-12.1) 05/04/16 18:04 - Impressions Impressions Chest X-Ray 05/06/16 11:22 IMPRESSION: New bilateral airspace opacities suspicious for pneumonia most significant in the right upper lobe. D/ / Rhianna Stinson MD / Rhianna Stinson MD Interpreting Provider: Rhianna Stinson MD - Attending Attestation I examined this patient and my medical decision-making was reviewed with the Resident Physician. I agree with the documented findings, disposition and treatment plan as described except to the extent set forth below. Ms. Perry is currently admitted for acute on chronic hypoxic respiratory failure and acute exacerbation of COPD. She remains moderate to high risk due to continued respiratory symptoms and failure. Ms. Perry is coughing a lot and having a lot of upper chest congestion. She had some blood streaks in sputum this morning. No GI symptoms. She does have some chest pain with coughing. Not much helping with wheezing today. Exam Alert. Lots of chest congestion in upper airway. Heart tachy. Audible wheeze heard No edema I/P 1. Acute on chronic respiratory failure 2. Acute exac COPD Further diagnoses and plan as above.
[2016-05-06] MEDS: Piperacillin/Tazobactam 3.375 GM in D5% in Water (Mini-Bag+) 100 ML IVPB SCH ×3 (10:25→23:28)
[2016-05-06] MEDS: MethylPREDNISolone 40 MG/ML VIAL IVP SCH ×3 (10:25→23:28)
[2016-05-06] MEDS: Levofloxacin 750 MG/150 ML 750 MG/150 ML BAG IVPB SCH (10:26)
[2016-05-06] MEDS: Acetylcysteine 10% 2 ML INHSOL IH SCH ×4 (11:25→23:06)
[2016-05-06] MEDS: Melatonin 3 MG TABLET PO SCH (21:54)
[2016-05-07] MEDS: Ipratropium/Albuterol Neb 3 ML IH SCH ×7 (04:15→20:11)
[2016-05-07] MEDS: Acetylcysteine 10% 2 ML INHSOL IH SCH ×5 (04:15→20:11)
[2016-05-07 04:53] LABS: Basophils % 0.1 %; Hematocrit 32.6 % (35.3-44.9); Immature Granulocytes % 0.7 % (0-4); Lymphocytes # 0.8 K/mcL (0.6-4.6); Lymphocytes % 4.7 %; Mean Corpuscular HGB Conc 33.7 g/dL (31.6-35.5); Mean Corpuscular Hemoglobin 32.3 pg (28.0-33.3); Mean Corpuscular Volume 95.6 fL (83.0-100.0); Mean Platelet Volume 9.5 fL (9.4-12.4); Monocytes # 0.3 K/mcL (0.0-1.3); Monocytes % 1.9 %; Neutrophils # 15.9 K/mcL (1.6-8.9); Platelet Count 315 K/mcL (140-400); Red Blood Count 3.41 M/mcL (3.82-4.97); Red Cell Distribution Width 11.8 % (11.5-14.5); Segmented Neutrophils % 92.6 %
[2016-05-07] MEDS: *HR* Enoxaparin 40 MG/0.4 ML SYRINGE SQ SCH (05:03)
[2016-05-07 05:08] LABS: BUN/Creatinine Ratio 8 (6-26); Blood Urea Nitrogen 5 mg/dL (7-20); Calcium 8.6 mg/dL (8.6-10.8); Carbon Dioxide 23 mEq/L (19-29); Chloride 104 mEq/L (98-109); Glucose 135 mg/dL (70-99); Osmolality,Calculated 285 (280-300); Potassium 3.9 mEq/L (3.5-4.5); Sodium 138 mEq/L (136-145); eGFR For African Americans > 60 (> 60); eGFR For Non-African Americans > 60 (> 60)
[2016-05-07] MEDS: Albuterol 2.5 MG/3 ML NEBULIZER IH PRN (06:44)
[2016-05-07] MEDS ORDERED: Benzonatate 100 MG CAPSULE PO PRN (07:11)
--- NOTE | 2016-05-07 07:23 | Event Note ---
<Mary Thorpe - Last Filed: 05/07/16 07:13> Date of Encounter: 05/07/16 Time of Encounter: 06:30 Patient had increased dyspnea following ambulation. HR increased to 130s. O2 92 on 3 L. BP 185/115. Pt stated that she couldn't breath and something is "sitting on her chest". Pt complained of substernal chest pain radiating to the neck. EKG with incomplete sensing and capture of pacemaker, evidence of subendocardial ischemia in anterolateral leads. This is a new finding from previous EKG. CTA chest ordered. Echo ordered. Ordered pacemaker interrogation. <Jayy You - Last Filed: 05/11/16 01:37> Date of Encounter: 05/07/16 Patient was visited and interviewed. I examined this patient. Laboratory and radiographic database was reviewed and considered and discussed. My medical decision-making was reviewed with the Resident Physician. I agree with the documented findings, disposition and treatment plan as described except to the extent set forth below. My signature below is to certify that this patient is under my care and that I, or the Resident Physician with me, has had a [id number] encounter with this patient. Abnormal lab results RBC 3.60 M/mcL (3.82-4.97) L 05/08/16 05:33 Hgb 11.4 g/dL (11.5-15.4) L 05/08/16 05:33 Hct 33.7 % (35.3-44.9) L 05/08/16 05:33 ABG pO2 64 mmHg (85-104) L 05/05/16 11:08 ABG Total CO2 26.8 mEq/L (20-26) H 05/05/16 11:08 ABG O2 Saturation 93 % (95-98) L 05/05/16 11:08 Glucose 135 mg/dL (70-99) H 05/07/16 04:36 POC Glucose 126 (58-89) H 05/09/16 11:20 Globulin 4.2 g/dL (2.4-3.5) H 05/04/16 18:04 Albumin/Globulin Ratio 0.9 (1.1-2.2) L 05/04/16 18:04 Ur Specific [place] 1.006 (1.010-1.025) L 05/05/16 05:30 Urine Glucose (UA) 250 mg/dL (Normal) H 05/05/16 05:30 Vancomycin Trough 8.5 mcg/mL (10-20) L 05/08/16 18:53 Coronavirus OC43 (PCR) DETECTED (Not Detect) A 05/08/16 08:40 05/05/16 05/07/16 11:08 08:01 ABG pH 7.45 ABG pCO2 37 ABG pO2 64 L ABG HCO3 25.7 ABG Total CO2 26.8 H ABG O2 Saturation 93 L ABG Base Excess 1.7 VBG pH 7.39 VBG pCO2 41 VBG pO2 40 VBG HCO3 24.8 Chest X-Ray 05/06/16 11:22 IMPRESSION: New bilateral airspace opacities suspicious for pneumonia most significant in the right upper lobe. D/ / Rhianna Stinson MD / Rhianna Stinson MD Interpreting Provider: Rhianna Stinson MD Chest CTA 05/07/16 06:48 IMPRESSION: No evidence of pulmonary embolism or acute pulmonary abnormality. Emphysema. Patchy ground-glass noted within the upper lobes. Findings may represent multifocal pneumonia. Focal scarring which appears nodular in the right upper lobe measuring up to 1.8 cm. Additional smaller scattered nodules. While findings may be infectious or inflammatory, neoplasm also consideration. Recommend short interval follow-up in 1 month with contrast enhanced chest CT or PET-CT. D/ / Angella Finley MD / Angella Finley MD Interpreting Provider: Angella Finley MD
[2016-05-07] MEDS ORDERED: methylPREDNISolone 125 MG/2 ML VIAL IVP STA (07:29)
[2016-05-07] MEDS ORDERED: Vancomycin 1,000 MG in D5% in Water 250 ML IVPB SCH (08:00)
[2016-05-07] MEDS ORDERED: Vancomycin 1,250 MG in D5% in Water 250 ML IVPB ONE (08:00)
--- NOTE | 2016-05-07 08:08 | Internal Med Progress Note ---
<Alexis Gay - Last Filed: 05/07/16 13:24> Date of Encounter: 05/07/16 Time of Encounter: 08:08 - Assessment and plan (1) Community acquired pneumonia Current Visit: Yes Status: Acute Assessment and plan: Clinically slightly better, still septic, leukocytosis improved, vanco was added by night team, CTA of chest showed multifocal pneumonia and 1.8 cm focal scarring nodular in right upper lobe, with hemoptysis, will consult pulm and follow their recommendation, likely she will need f/u CT of chest in several weeks as outpt, con't IV abxs, check MRSA probe. (2) Sepsis Current Visit: Yes Status: Acute Assessment and plan: Leukocytosis better, still tachycardic, treat underlying CAP. Qualifiers: Sepsis type: sepsis due to unspecified organism Qualified Code(s): A41.9 - Sepsis, unspecified organism (3) COPD exacerbation Current Visit: Yes Status: Acute Assessment and plan: Con't duoneb, oxygen support, IV steroid and iv abxs. (4) Opiate dependence Current Visit: Yes Status: Chronic Assessment and plan: She is on suboxone at home, she needs to bring her own meds since we do not carry it, avoid narcotics. Qualifiers: Substance use status: uncomplicated Qualified Code(s): F11.20 - Opioid dependence, uncomplicated (5) Tobacco abuse Current Visit: Yes Status: Chronic Assessment and plan: Smoking cessation education given. (6) DVT prophylaxis Current Visit: No Status: Acute Assessment and plan: IPC. - Subjective Interval history: Pt seen and examined, slightly her SOB is better, still have blood streaked sputum. Chest pain she thinks its from her coughing too much. - Constitutional Vitals: Temp Pulse Resp BP Pulse Ox 97.4 F L 80 17 171/95 90 L 05/07/16 07:04 05/07/16 07:04 05/07/16 07:04 05/07/16 07:04 05/07/16 07:04 General appearance: Present: cooperative, A&O X 3, no acute distress, answers questions appropriately - Head Head exam: Present: atraumatic, normocephalic - Eye Eye exam: Present: PERRL, conjuntiva pink, sclera anicteric Pupils: Present: PERRL - Neck Neck exam general surgery: Present: supple, trachea midline. Absent: lymphadenopathy - Respiratory Respiratory exam: Present: rhonchi (diffusely b/l), wheezes (at base b/l). Absent: accessory muscle use, rales - Cardiovascular Cardiovascular exam: Present: RRR, +S1, +S2. Absent: diastolic murmur, gallop, rubs, systolic murmur - GI/Abdominal GI/Abdominal exam: Present: normal bowel sounds, soft, no peritoneal signs. Absent: distended, tenderness - Extremities Exam Extremities exam: Present: warm, radial pulses palpable and symetrical. Absent : calf tenderness, cyanotic, pedal edema - Neurological Exam Neurological exam: Present: CN II-XII intact, oriented X3, no focal deficits. Absent: pronater drift, facial droop, speech deficit - Skin Skin exam: Present: dry, intact Internal Medicine: Result - Labs CBC & Chem 7: 05/07/16 04:36 05/07/16 04:36 Labs: Short CBC 05/07/16 Range/Units 04:36 WBC 17.1 H (4.3-11.1) K/mcL Hgb 11.0 L (11.5-15.4) g/dL Hct 32.6 L (35.3-44.9) % Plt Count 315 (140-400) K/mcL Neutrophils # 15.9 H (1.6-8.9) K/mcL BMP 05/07/16 04:36 Sodium 138 Potassium 3.9 Chloride 104 Carbon Dioxide 23 BUN 5 L Creatinine 0.64 Glucose 135 H Calcium 8.6 - ABG Interpretation ABG results: ABG ABG pH 7.45 pH Units (7.32-7.45) 05/05/16 11:08 ABG pCO2 37 mmHg (35-45) 05/05/16 11:08 ABG pO2 64 mmHg (85-104) L 05/05/16 11:08 ABG O2 Saturation 93 % (95-98) L 05/05/16 11:08 PT/INR, D-dimer PT 11.6 Seconds (9.4-12.1) 05/04/16 18:04 - Impressions Impressions Chest X-Ray 05/06/16 11:22 IMPRESSION: New bilateral airspace opacities suspicious for pneumonia most significant in the right upper lobe. D/ / Rhianna Stinson MD / Rhianna Stinson MD Interpreting Provider: Rhianna Stinson MD Chest CTA 05/07/16 06:48 IMPRESSION: No evidence of pulmonary embolism or acute pulmonary abnormality. Emphysema. Patchy ground-glass noted within the upper lobes. Findings may represent multifocal pneumonia. Focal scarring which appears nodular in the right upper lobe measuring up to 1.8 cm. Additional smaller scattered nodules. While findings may be infectious or inflammatory, neoplasm also consideration. Recommend short interval follow-up in 1 month with contrast enhanced chest CT or PET-CT. D/ / Angella Finley MD / Angella Finley MD Interpreting Provider: Angella Finley MD Consult Discharge Plan - Plan Referrals: Mayra Ma MD [Primary Care Provider] - <Kip Xiao - Last Filed: 05/08/16 14:54> Date of Encounter: 05/07/16 - Assessment and plan (1) Acute and chronic respiratory failure with hypoxia Current Visit: Yes Status: Acute (2) COPD exacerbation Current Visit: Yes Status: Acute (3) Opiate dependence Current Visit: Yes Status: Chronic Qualifiers: Substance use status: uncomplicated Qualified Code(s): F11.20 - Opioid dependence, uncomplicated (4) Tobacco abuse Current Visit: Yes Status: Chronic - Constitutional Vitals: Temp Pulse Resp BP Pulse Ox 98.0 F 93 16 154/94 93 L 05/08/16 11:00 05/08/16 11:00 05/08/16 11:00 05/08/16 11:00 05/08/16 11:00 Internal Medicine: Result - Labs CBC & Chem 7: 05/08/16 05:33 05/08/16 05:33 Labs: Short CBC 05/08/16 Range/Units 05:33 WBC 9.9 (4.3-11.1) K/mcL Hgb 11.4 L (11.5-15.4) g/dL Hct 33.7 L (35.3-44.9) % Plt Count 342 (140-400) K/mcL Neutrophils # 8.6 (1.6-8.9) K/mcL BMP 05/08/16 05:33 BUN 8 Creatinine 0.61 - ABG Interpretation ABG results: ABG ABG pH 7.45 pH Units (7.32-7.45) 05/05/16 11:08 ABG pCO2 37 mmHg (35-45) 05/05/16 11:08 ABG pO2 64 mmHg (85-104) L 05/05/16 11:08 ABG O2 Saturation 93 % (95-98) L 05/05/16 11:08 PT/INR, D-dimer PT 11.6 Seconds (9.4-12.1) 05/04/16 18:04 - Attending Attestation I examined this patient and my medical decision-making was reviewed with the Resident Physician on 05/07/16. I agree with the documented findings, disposition and treatment plan as described except to the extent set forth below. Ms. Perry is currently admitted for acute exacerbation of COPD and acute on chronic hypoxic respiratory failure. She remains moderate to high risk due to continued pulmonary complications. Ms. Perry had a difficult night. She had more dyspnea and coughing and had more hemoptysis. She has been resting more comfortably this morning. No GI symptoms or other new issues. Exam Alert. Mod resp distress Heart reg Lungs with diffuse wheeze and rhonchi Abd soft No edema I/P 1. Acute on chronic hypoxic resp failure 2. Acute exac COPD 3. Multifocal pneumonia - add Vanc Further diagnoses and plan as above.
[2016-05-07] MEDS: Piperacillin/Tazobactam 3.375 GM in D5% in Water (Mini-Bag+) 100 ML IVPB SCH ×3 (08:09→23:21)
[2016-05-07] MEDS: MethylPREDNISolone 40 MG/ML VIAL IVP SCH ×4 (08:09→23:21)
[2016-05-07] MEDS: Levofloxacin 750 MG/150 ML 750 MG/150 ML BAG IVPB SCH (08:10)
[2016-05-07] MEDS: Aspirin Enteric Coated 81 MG Tablet PO SCH (08:11)
[2016-05-07] MEDS: Insulin LISPRO 300 UNITS/3 ML VIAL SQ SCH ×4 (08:12→22:13)
[2016-05-07] MEDS: NALOXONE PO SCH ×2 (08:14→22:02)
[2016-05-07] MEDS: TUDORZA IH SCH ×2 (08:14→22:02)
[2016-05-07] MEDS: BUPRENORPHINE PO SCH ×2 (08:14→22:02)
[2016-05-07 08:23] LABS: VBG HCO3 24.8 mEq/L (21-27); VBG PH 7.39 pH Units (7.32-7.42)
[2016-05-07] MEDS ORDERED: Diltiazem CD (24hr) 120 MG CAPSULE PO SCH (09:45)
--- NOTE | 2016-05-07 11:54 | Pulmonology Consult Note ---
Date of Encounter: 05/07/16 Time of Encounter: 11:49 Assessment and Plan (1) Abnormal CT scan, chest Current Visit: Yes Status: Acute I reviewed the CT scan of the chest. There are multiple abnormalities. She has bilateral upper lobe predominant infiltrates with reactive adenopathy, which is overall consistent with her clinical presentation of pneumonia. There could be a component of acute lung injury has well. These patchy groundglass infiltrates are superimposed on fairly significant emphysematous changes. There is also a right upper lobe nodular lesion. No previous CT scans for comparison. * Recommend treating for pneumonia followed by repeat CT scan of chest in 6-8 weeks in order to ensure radiographic resolution of infiltrates and stability of nodule * She can follow up with pulmonary at that time (2) Community acquired pneumonia Current Visit: No Status: Acute Severe community-acquired pneumonia. Respiratory viral panel was significant for coronal virus. Although she could have a viral pneumonia, I am concerned for bacterial superinfection given the severity of her disease. * I recommend empiric antibiotics for treatment of community-acquired pneumonia with ceftriaxone and levofloxacin. * If the MRSA nasal probe is negative, recommend discontinuation of vancomycin. * She should be treated with a total 8 day course of antibiotics. * Discussed with respiratory therapy and added flutter valve to assist with mucus clearance (3) Hemoptysis Current Visit: Yes Status: Acute Likely related to her underlying pneumonia. This is not massive hemoptysis. We will continue to follow clinically, and we can consider bronchoscopy next week if this does not resolve. (4) Acute exacerbation of chronic obstructive airways disease Current Visit: No Status: Chronic Agree with empiric treatment as directed by primary service with bronchodilators and steroids. (5) Smoking addiction Current Visit: No Status: Chronic Discussed with patient and counseled her on the importance of smoking cessation. Pulmonary will continue to follow History of Present Illness Consult date: 05/07/16 Requesting physician: Alexis Gay Reason for consult: abnormal CXR/CT Chief complaint: cough History of present illness: 60-year-old white female smoker with a medical history significant for COPD who was admitted to the hospital with pneumonia and acute exacerbation of COPD. The patient reports approximately 2 days of symptoms prior to admission to the hospital. Initially she noted a change in the character of her sputum. Typically she coughs up a vasquez colored sputum but it turned into a green color. Next, she noted progressive dyspnea on exertion to where she was short of breath at rest. Evaluation in the hospital revealed chest imaging concerning for pneumonia. She been treated with steroids, bronchodilators, and antibiotics. Overall, the patient feels better with improvement in her dyspnea on exertion. However, she still has a cough, which is less productive of sputum. She has noted a streak sputum in the past 24 hours. No fevers or chills at this time. She does have pleuritic chest pain. No exertional chest pain or diaphoresis noted. A CT scan of the chest was abnormal-appearing, and pulmonary was consult for further evaluation and management. Past Med Surg Social Fam HX - Past Medical History Medical history: arthritis, asthma, COPD, GERD, hypertension, other Psychiatric history: anxiety - Past Surgical History Surgical History: hysterectomy (for cervical carcer.), orthopedic, other (right rotator cuff repair.), pacemaker/AICD (for complete heart block), thyroidectomy (for goiter) - Social History Smoking Status: Current every day smoker Packs per day: 1/2 Smokeless Tobacco Status: No Alcohol use: occasionally Drug use: none - Family History Mother Living Status: Still Living Hx Family Cardiac Disorders: Yes Hx Family Respiratory Disorders: Yes Hx Family Cancer: Yes Hx Family Neuromuscular Disorders: (parkinsons) Father Living Status: Hx Family Cardiac Disorders: Yes Medications and Allergies Atorvastatin [Lipitor] 40 mg PO QAM 12/25/14 [History] Buprenorphine HCl/Naloxone HCl [Suboxone 8 mg-2 mg Sl Film] 1 each PO BID [History] Diltiazem HCl [Diltiazem 24Hr Cd] 240 mg PO QAM 12/25/14 [History] Lisinopril [Zestril] 40 mg PO QAM 12/25/14 [History] Aspirin Enteric Coated [Aspirin EC] 81 mg PO DAILY #30 tablet. 12/28/14 [Rx] Aclidinium [place] [Tudorza Pressair] 1 puff IH BID 05/04/16 [History] Albuterol Sulfate [Ventolin Hfa] 2 puff IH Q4HR PRN 05/04/16 [History] Omeprazole [PriLOSEC] 40 mg PO DAILY 05/04/16 [History] Tiotropium [Spiriva] 18 mcg IH 0700 05/04/16 [History] Allergies No Known Allergies Allergy (Verified 12/25/14 15:38) All Systems: A 10-system review of systems was performed and is negative for pertinent findings except as documented above in the HPI. Physical Examination Vital Signs: Vital Signs, Last 4 Hours Temp Pulse Resp BP Pulse Ox 05/07/16 11:08 97.5 F L 95 15 161/101 93 L 05/07/16 09:00 92 L General: Ill-appearing female in no acute distress Eyes: nonicteric ENT: oropharynx moist Neck: supple, no lymphadenopathy Lungs: Bilateral rhonchi and expiratory wheezing noted Cardiovascular: regular rate and rhythm Gastrointestinal: normoactive bowel sounds, soft, non-tender, non-distended Integumentary: normal Extremities: no cyanosis, no edema Musculoskeletal: no deformities Neuro: normal mental status, non-focal exam Psych: mood appropriate, affect normal Results - Laboratory Findings CBC and BMP: 05/07/16 04:36 05/07/16 04:36 ABG ABG pH 7.45 pH Units (7.32-7.45) 05/05/16 11:08 ABG pCO2 37 mmHg (35-45) 05/05/16 11:08 ABG pO2 64 mmHg (85-104) L 05/05/16 11:08 ABG O2 Saturation 93 % (95-98) L 05/05/16 11:08 PT/INR, D-dimer PT 11.6 Seconds (9.4-12.1) 05/04/16 18:04 Abnormal lab findings: Abnormal lab results WBC 17.1 K/mcL (4.3-11.1) H 05/07/16 04:36 RBC 3.41 M/mcL (3.82-4.97) L 05/07/16 04:36 Hgb 11.0 g/dL (11.5-15.4) L 05/07/16 04:36 Hct 32.6 % (35.3-44.9) L 05/07/16 04:36 Neutrophils # 15.9 K/mcL (1.6-8.9) H 05/07/16 04:36 ABG pO2 64 mmHg (85-104) L 05/05/16 11:08 ABG Total CO2 26.8 mEq/L (20-26) H 05/05/16 11:08 ABG O2 Saturation 93 % (95-98) L 05/05/16 11:08 BUN 5 mg/dL (7-20) L 05/07/16 04:36 Glucose 135 mg/dL (70-99) H 05/07/16 04:36 POC Glucose 127 (58-89) H 05/06/16 16:32 Globulin 4.2 g/dL (2.4-3.5) H 05/04/16 18:04 Albumin/Globulin Ratio 0.9 (1.1-2.2) L 05/04/16 18:04 Ur Specific [place] 1.006 (1.010-1.025) L 05/05/16 05:30 Urine Glucose (UA) 250 mg/dL (Normal) H 05/05/16 05:30 Coronavirus OC43 (PCR) DETECTED (Not Detect) A 05/05/16 11:55 - Microbiology Findings Microbiology Findings: Microbiology, Last 48 Hours 05/05/16 08:30 Sputum Culture - Final Sputum 05/05/16 05:30 Legionella Antigen - Final Urine,Clean Catch Streptococcus pneumoniae Antigen (M - Final - Clinical Findings Intake & Output: Intake & Output 05/06/16 05/07/16 05/07/16 23:59 07:59 15:59 Intake Total 220 / 220 300 / 300 300 / 300 Output Total 0 / 0 600 / 600 Balance 220 / 220 300 / 300 -300 / -300 Consult Discharge Plan - Plan Referrals: Mayra Ma MD [Primary Care Provider] -
[2016-05-07] MEDS: Vancomycin 1,000 MG in D5% in Water 250 ML IVPB SCH (20:00)
[2016-05-07] MEDS: Melatonin 3 MG TABLET PO SCH (23:21)
[2016-05-08] MEDS: Albuterol 2.5 MG/3 ML NEBULIZER IH PRN ×2 (00:28→07:54)
[2016-05-08] MEDS: Acetylcysteine 10% 2 ML INHSOL IH SCH ×6 (00:28→20:35)
[2016-05-08] MEDS: Ipratropium/Albuterol Neb 3 ML IH SCH ×4 (04:24→20:34)
[2016-05-08 06:25] LABS: Basophils % 0.1 %; Hematocrit 33.7 % (35.3-44.9); Hemoglobin 11.4 g/dL (11.5-15.4); Immature Granulocytes % 0.7 % (0-4); Lymphocytes # 0.9 K/mcL (0.6-4.6); Lymphocytes % 8.7 %; Mean Corpuscular HGB Conc 33.8 g/dL (31.6-35.5); Mean Corpuscular Hemoglobin 31.7 pg (28.0-33.3); Mean Corpuscular Volume 93.6 fL (83.0-100.0); Mean Platelet Volume 9.8 fL (9.4-12.4); Monocytes # 0.4 K/mcL (0.0-1.3); Monocytes % 3.7 %; Neutrophils # 8.6 K/mcL (1.6-8.9); Platelet Count 342 K/mcL (140-400); Red Cell Distribution Width 11.8 % (11.5-14.5); Segmented Neutrophils % 86.8 %
--- NOTE | 2016-05-08 07:48 | Internal Med Progress Note ---
<Alexis Gay - Last Filed: 05/08/16 10:47> Date of Encounter: 05/08/16 Time of Encounter: 07:48 - Assessment and plan (1) Community acquired pneumonia Current Visit: Yes Status: Acute Assessment and plan: Sepsis resolved, clinically much better after restarted on vanco IV, MRSA screening negative but this was obtained today after vanco was added yesterday, if con't to improve, d/c with po abx which covers MRSA. (2) Sepsis Current Visit: Yes Status: Acute Assessment and plan: Resolved. Qualifiers: Sepsis type: sepsis due to unspecified organism Qualified Code(s): A41.9 - Sepsis, unspecified organism (3) COPD exacerbation Current Visit: Yes Status: Acute Assessment and plan: Con't duoneb, oxygen support, IV steroid and iv abxs. (4) Opiate dependence Current Visit: Yes Status: Chronic Assessment and plan: She is on suboxone at home, she needs to bring her own meds since we do not carry it, avoid narcotics. Qualifiers: Substance use status: uncomplicated Qualified Code(s): F11.20 - Opioid dependence, uncomplicated (5) Tobacco abuse Current Visit: Yes Status: Chronic Assessment and plan: Smoking cessation education given. (6) DVT prophylaxis Current Visit: No Status: Acute Assessment and plan: IPC. - Subjective Interval history: Pt seen and examined, clinically better, SOB better, productive cough improved, no chest pain. - Constitutional Vitals: Temp Pulse Resp BP Pulse Ox 98.0 F 87 15 156/94 97 05/08/16 07:16 05/08/16 07:16 05/08/16 07:16 05/08/16 07:16 05/08/16 07:16 General appearance: Present: cooperative, A&O X 3, no acute distress, answers questions appropriately - Head Head exam: Present: atraumatic, normocephalic - Eye Eye exam: Present: PERRL, conjuntiva pink, sclera anicteric Pupils: Present: PERRL - Neck Neck exam general surgery: Present: supple, trachea midline. Absent: lymphadenopathy - Respiratory Respiratory exam: Present: decreased breath sounds, rhonchi (at base b/l), wheezes (diffusely b/l). Absent: accessory muscle use, rales - Cardiovascular Cardiovascular exam: Present: RRR, +S1, +S2. Absent: diastolic murmur, gallop, rubs, systolic murmur - GI/Abdominal GI/Abdominal exam: Present: normal bowel sounds, soft, no peritoneal signs. Absent: distended, tenderness - Extremities Exam Extremities exam: Present: warm, radial pulses palpable and symetrical. Absent : calf tenderness, cyanotic, pedal edema - Neurological Exam Neurological exam: Present: CN II-XII intact, oriented X3, no focal deficits. Absent: pronater drift, facial droop, speech deficit - Skin Skin exam: Present: dry, intact Internal Medicine: Result - Labs CBC & Chem 7: 05/08/16 05:33 05/07/16 04:36 Labs: Short CBC 05/08/16 Range/Units 05:33 WBC 9.9 (4.3-11.1) K/mcL Hgb 11.4 L (11.5-15.4) g/dL Hct 33.7 L (35.3-44.9) % Plt Count 342 (140-400) K/mcL Neutrophils # 8.6 (1.6-8.9) K/mcL - ABG Interpretation ABG results: ABG ABG pH 7.45 pH Units (7.32-7.45) 05/05/16 11:08 ABG pCO2 37 mmHg (35-45) 05/05/16 11:08 ABG pO2 64 mmHg (85-104) L 05/05/16 11:08 ABG O2 Saturation 93 % (95-98) L 05/05/16 11:08 PT/INR, D-dimer PT 11.6 Seconds (9.4-12.1) 05/04/16 18:04 - Impressions Impressions Chest CTA 05/07/16 06:48 IMPRESSION: No evidence of pulmonary embolism or acute pulmonary abnormality. Emphysema. Patchy ground-glass noted within the upper lobes. Findings may represent multifocal pneumonia. Focal scarring which appears nodular in the right upper lobe measuring up to 1.8 cm. Additional smaller scattered nodules. While findings may be infectious or inflammatory, neoplasm also consideration. Recommend short interval follow-up in 1 month with contrast enhanced chest CT or PET-CT. D/ / Angella Finley MD / Angella Finley MD Interpreting Provider: Angella Finley MD Consult Discharge Plan - Plan Referrals: Mayra Ma MD [Primary Care Provider] - <Kip Xiao - Last Filed: 05/08/16 16:46> Date of Encounter: 05/08/16 - Assessment and plan (1) Acute and chronic respiratory failure with hypoxia Current Visit: Yes Status: Acute (2) COPD exacerbation Current Visit: Yes Status: Acute (3) Opiate dependence Current Visit: Yes Status: Chronic Qualifiers: Substance use status: uncomplicated Qualified Code(s): F11.20 - Opioid dependence, uncomplicated (4) Tobacco abuse Current Visit: Yes Status: Chronic - Constitutional Vitals: Temp Pulse Resp BP Pulse Ox 98.0 F 79 15 116/72 93 L 05/08/16 16:06 05/08/16 16:06 05/08/16 16:06 05/08/16 16:06 05/08/16 16:06 Internal Medicine: Result - Labs CBC & Chem 7: 05/08/16 05:33 05/08/16 05:33 Labs: Short CBC 05/08/16 Range/Units 05:33 WBC 9.9 (4.3-11.1) K/mcL Hgb 11.4 L (11.5-15.4) g/dL Hct 33.7 L (35.3-44.9) % Plt Count 342 (140-400) K/mcL Neutrophils # 8.6 (1.6-8.9) K/mcL BMP 05/08/16 05:33 BUN 8 Creatinine 0.61 - ABG Interpretation ABG results: ABG ABG pH 7.45 pH Units (7.32-7.45) 05/05/16 11:08 ABG pCO2 37 mmHg (35-45) 05/05/16 11:08 ABG pO2 64 mmHg (85-104) L 05/05/16 11:08 ABG O2 Saturation 93 % (95-98) L 05/05/16 11:08 PT/INR, D-dimer PT 11.6 Seconds (9.4-12.1) 05/04/16 18:04 - Attending Attestation I examined this patient and my medical decision-making was reviewed with the Resident Physician on 05/08/16. I agree with the documented findings, disposition and treatment plan as described except to the extent set forth below. Ms. Perry is currently admitted for acute on chronic hypoxic resp failure and acute exac COPD. She remains moderate to high risk due to potential for worsening respiratory failure. Ms. Perry is doing much better today with the addition of Vancomycin. She has had no further hemoptysis and slept better. She has less wheeze and is able to bring things up better. Exam Alert. Comfortable Heart reg - not tachy Lungs with less wheeze I/P 1. Acute on chronic hypoxic resp failure 2. Acute exac COPD 3. Hemoptysis Further diagnoses and plan as above. MRSA screen done today (after Vanc started). Will try PO abx to cover MRSA as well.
[2016-05-08] MEDS: MethylPREDNISolone 40 MG/ML VIAL IVP SCH ×3 (08:21→21:17)
[2016-05-08] MEDS: Piperacillin/Tazobactam 3.375 GM in D5% in Water (Mini-Bag+) 100 ML IVPB SCH ×3 (08:21→23:39)
[2016-05-08] MEDS: Vancomycin 1,000 MG in D5% in Water 250 ML IVPB SCH ×2 (08:22→21:17)
[2016-05-08] MEDS: Levofloxacin 750 MG/150 ML 750 MG/150 ML BAG IVPB SCH (08:22)
[2016-05-08] MEDS: Aspirin Enteric Coated 81 MG Tablet PO SCH (08:23)
[2016-05-08] MEDS: Insulin LISPRO 300 UNITS/3 ML VIAL SQ SCH ×4 (08:26→21:18)
[2016-05-08] MEDS: Diltiazem CD (24hr) 240 MG CAPSULE PO SCH (08:27)
[2016-05-08] MEDS: TUDORZA IH SCH ×2 (08:27→21:18)
[2016-05-08] MEDS: NALOXONE PO SCH ×2 (08:27→21:18)
[2016-05-08] MEDS: BUPRENORPHINE PO SCH ×2 (08:27→21:18)
--- NOTE | 2016-05-08 09:00 | Pulmonology Progress Note ---
Date of Encounter: 05/08/16 Time of Encounter: 08:47 Assessment and Plan (1) Abnormal CT scan, chest Current Visit: Yes Status: Acute I reviewed the CT scan of the chest. There are multiple abnormalities. She has bilateral upper lobe predominant infiltrates with reactive adenopathy, which is overall consistent with her clinical presentation of pneumonia. There could be a component of acute lung injury has well. These patchy groundglass infiltrates are superimposed on fairly significant emphysematous changes. There is also a right upper lobe nodular lesion. No previous CT scans for comparison. * Recommend treating for pneumonia followed by repeat CT scan of chest in 6-8 weeks in order to ensure radiographic resolution of infiltrates and stability of nodule * She can follow up with pulmonary at that time (2) Community acquired pneumonia Current Visit: No Status: Acute Severe community-acquired pneumonia. Respiratory viral panel was significant for alfred virus. Although she could have a viral pneumonia, I am concerned for bacterial superinfection given the severity of her disease. * I recommend empiric antibiotics for treatment of community-acquired pneumonia with ceftriaxone and levofloxacin. * If the MRSA nasal probe is negative, recommend discontinuation of vancomycin. * She should be treated with a total 8 day course of antibiotics. * Discussed with respiratory therapy to added flutter valve to assist with mucus clearance (3) Hemoptysis Current Visit: Yes Status: Acute Likely related to her underlying pneumonia. This is not massive hemoptysis. We will continue to follow clinically, and we can consider bronchoscopy next week if this does not resolve. (4) Acute exacerbation of chronic obstructive airways disease Current Visit: No Status: Chronic Agree with empiric treatment as directed by primary service with bronchodilators and steroids. I will transition her to a PO regimen, and I recommend a 2 week prednisone taper. (5) Smoking addiction Current Visit: No Status: Chronic Discussed with patient and counseled her on the importance of smoking cessation. Pulmonary will continue to follow Subjective Principal diagnosis: Pneumonia Interval history: No acute overnight events. Patient reports overall feeling better. She reports less dyspnea at rest. No hemoptysis in the past 24 hours. Minimal sputum production. All systems reviewed and otherwise negative. Objective PUL Vital signs: Last Vital Signs Temp 98.0 F 05/08/16 07:16 Pulse 87 05/08/16 07:16 Resp 15 05/08/16 07:16 BP 156/94 05/08/16 07:16 Pulse Ox 97 05/08/16 07:16 General: Ill-appearing female in no acute distress Eyes: nonicteric ENT: oropharynx moist Neck: supple, no lymphadenopathy Lungs: Bilateral rhonchi and expiratory wheezing noted Cardiovascular: regular rate and rhythm Gastrointestinal: normoactive bowel sounds, soft, non-tender, non-distended Integumentary: normal Extremities: no cyanosis, no edema Musculoskeletal: no deformities Neuro: normal mental status, non-focal exam Psych: mood appropriate, affect normal Results - Laboratory Findings CBC and BMP: 05/08/16 05:33 05/07/16 04:36 ABG ABG pH 7.45 pH Units (7.32-7.45) 05/05/16 11:08 ABG pCO2 37 mmHg (35-45) 05/05/16 11:08 ABG pO2 64 mmHg (85-104) L 05/05/16 11:08 ABG O2 Saturation 93 % (95-98) L 05/05/16 11:08 PT/INR, D-dimer PT 11.6 Seconds (9.4-12.1) 05/04/16 18:04 Abnormal lab findings: Abnormal lab results RBC 3.60 M/mcL (3.82-4.97) L 05/08/16 05:33 Hgb 11.4 g/dL (11.5-15.4) L 05/08/16 05:33 Hct 33.7 % (35.3-44.9) L 05/08/16 05:33 ABG pO2 64 mmHg (85-104) L 05/05/16 11:08 ABG Total CO2 26.8 mEq/L (20-26) H 05/05/16 11:08 ABG O2 Saturation 93 % (95-98) L 05/05/16 11:08 BUN 5 mg/dL (7-20) L 05/07/16 04:36 Glucose 135 mg/dL (70-99) H 05/07/16 04:36 POC Glucose 182 (58-89) H 05/07/16 20:14 Globulin 4.2 g/dL (2.4-3.5) H 05/04/16 18:04 Albumin/Globulin Ratio 0.9 (1.1-2.2) L 05/04/16 18:04 Ur Specific [place] 1.006 (1.010-1.025) L 05/05/16 05:30 Urine Glucose (UA) 250 mg/dL (Normal) H 05/05/16 05:30 Coronavirus OC43 (PCR) DETECTED (Not Detect) A 05/05/16 11:55 - Microbiology Findings Microbiology Findings: Microbiology, Last 48 Hours 05/05/16 08:30 Sputum Culture - Final Sputum - Clinical Findings Intake & Output: Intake & Output 05/07/16 05/08/16 05/08/16 23:59 07:59 15:59 Intake Total 350 / 350 200 / 200 Output Total 1200 / 1200 Balance 350 / 350 -1000 / -1000 Weight 58.7 kg Consult Discharge Plan - Plan Referrals: Mayra Ma MD [Primary Care Provider] -
[2016-05-08 09:59] LABS: Adenovirus Not Detected (Not Detect); Bordetella Pertussis Not Detected (Not Detect); Chlamydophila pneumoniae Not Detected (Not Detect); Coronavirus 229E Not Detected (Not Detect); Coronavirus HKU1 Not Detected (Not Detect); Coronavirus NL63 Not Detected (Not Detect); Coronavirus OC43 ***DETECTED*** (Not Detect); Human Metapneumovirus Not Detected (Not Detect); Human Rhinovirus/Enterovirus Not Detected (Not Detect); Influenza A Subtype 2009 H1 Not Detected (Not Detect); Influenza A Untypeable Not Detected (Not Detect); Influenza B Not Detected (Not Detect); Mycoplasma pneumoniae Not Detected (Not Detect); Parainfluenza Virus 1 Not Detected (Not Detect); Parainfluenza Virus 2 Not Detected (Not Detect); Parainfluenza Virus 3 Not Detected (Not Detect); Parainfluenza Virus 4 Not Detected (Not Detect); Respiratory Syncytial Virus Not Detected (Not Detect)
[2016-05-08 11:32] LABS: BUN/Creatinine Ratio 13 (6-26); Blood Urea Nitrogen 8 mg/dL (7-20); eGFR For African Americans > 60 (> 60); eGFR For Non-African Americans > 60 (> 60)
--- NOTE | 2016-05-08 19:51 | Electrocardiograph Report ---
[facility] Test Date: 2016-05-07 Pat Name: MELISSA MCGREGOR Department: 111 Room: 2NE20 Gender: F Slate Picker: [facility] : 1955 Requested By: Kip Xiao Order Number: [id number] Reading MD: Stef Snow DO Measurements Intervals [place] Rate: 48 P: 71 [place]: 192 QRS: -13 QRSD: 116 T: -52 QT: 439 QTc: 405 Interpretive Statements Demand AV pacing Electronically Signed On 05-08-16 19:50:46 EST by Stef Snow DO
[2016-05-08] MEDS: Melatonin 3 MG TABLET PO SCH (23:39)
[2016-05-09] MEDS: Acetylcysteine 10% 2 ML INHSOL IH SCH ×4 (00:01→11:36)
[2016-05-09 07:35] VITALS: BP 159/116
[2016-05-09] MEDS: Ipratropium/Albuterol Neb 3 ML IH SCH ×2 (07:47→11:36)
[2016-05-09] MEDS ORDERED: Vancomycin 1,500 MG in D5% in Water 250 ML IVPB SCH (08:00)
--- NOTE | 2016-05-09 08:50 | Pulmonology Progress Note ---
Date of Encounter: 05/09/16 Time of Encounter: 08:48 Assessment and Plan (1) Acute and chronic respiratory failure with hypoxia Current Visit: Yes Status: Acute Acute and chronic respiratory failure with hypoxia is due to advanced COPD with exacerbation secondary to infection, community-acquired pneumonia. Given the patient's clinical improvement, I think it is safe to transition to enteral antibiotics and complete a 5 day course total of Levaquin. The patient should also continue to receive supplemental oxygen targeting saturation goal of 88% or greater, systemic steroids with a tapering course over the next 8-10 days and inhaled bronchodilators. I obviously reviewed and reiterated with the patient the importance of smoking cessation. The patient will follow-up with outpatient pulmonary services through [place]. Call if questions [facility] [phone] Code(s): J96.21 - Acute and chronic respiratory failure with hypoxia SNOMED Code(s): 871063867, [id number] Subjective Principal diagnosis: Pneumonia Interval history: The patient notes a significant improvement of her overall sense of well-being as well as respiratory status. She continues to cough chest congestion but currently denies hemoptysis, purulent sputum production fevers or chills. The patient notes an improvement of her activity tolerance. She currently feels safe for discharge and wishes to leave the hospital today. Objective PUL Vital signs: Last Vital Signs Temp 98.1 F 05/09/16 07:29 Pulse 83 05/09/16 07:29 Resp 18 05/09/16 07:29 BP 159/116 05/09/16 07:29 Pulse Ox 95 05/09/16 07:29 General appearance: no acute distress, alert Eyes: nonicteric ENT: oropharynx moist Neck: supple Effort: normal Auscultation: bilateral: diminished breath sounds, wheezes Cardiovascular: regular rate and rhythm Gastrointestinal: normoactive bowel sounds, non-distended Integumentary: normal Extremities: no cyanosis Musculoskeletal: no deformities normal mental status, non-focal exam Results - Laboratory Findings CBC and BMP: 05/08/16 05:33 05/08/16 05:33 ABG ABG pH 7.45 pH Units (7.32-7.45) 05/05/16 11:08 ABG pCO2 37 mmHg (35-45) 05/05/16 11:08 ABG pO2 64 mmHg (85-104) L 05/05/16 11:08 ABG O2 Saturation 93 % (95-98) L 05/05/16 11:08 PT/INR, D-dimer PT 11.6 Seconds (9.4-12.1) 05/04/16 18:04 Abnormal lab findings: Abnormal lab results RBC 3.60 M/mcL (3.82-4.97) L 05/08/16 05:33 Hgb 11.4 g/dL (11.5-15.4) L 05/08/16 05:33 Hct 33.7 % (35.3-44.9) L 05/08/16 05:33 ABG pO2 64 mmHg (85-104) L 05/05/16 11:08 ABG Total CO2 26.8 mEq/L (20-26) H 05/05/16 11:08 ABG O2 Saturation 93 % (95-98) L 05/05/16 11:08 Glucose 135 mg/dL (70-99) H 05/07/16 04:36 POC Glucose 155 (58-89) H 05/08/16 20:14 Globulin 4.2 g/dL (2.4-3.5) H 05/04/16 18:04 Albumin/Globulin Ratio 0.9 (1.1-2.2) L 05/04/16 18:04 Ur Specific [place] 1.006 (1.010-1.025) L 05/05/16 05:30 Urine Glucose (UA) 250 mg/dL (Normal) H 05/05/16 05:30 Vancomycin Trough 8.5 mcg/mL (10-20) L 05/08/16 18:53 Coronavirus OC43 (PCR) DETECTED (Not Detect) A 05/08/16 08:40 - Microbiology Findings Microbiology Findings: Microbiology, Last 48 Hours 05/07/16 08:01 Blood Culture - Preliminary Peripheral Venipuncture No growth. 05/07/16 08:01 Blood Culture - Preliminary Peripheral Venipuncture No growth. 05/05/16 08:30 Sputum Culture - Final Sputum - Clinical Findings Intake & Output: Intake & Output 05/08/16 05/09/16 05/09/16 23:59 07:59 15:59 Intake Total 350 / 350 100 / 100 Balance 350 / 350 100 / 100 Weight 60.2 kg Consult Discharge Plan - Plan Referrals: Mayra Ma MD [Primary Care Provider] -
[2016-05-09] MEDS ORDERED: predniSONE 20 MG TABLET PO SCH (09:00)
[2016-05-09] MEDS: Aspirin Enteric Coated 81 MG Tablet PO SCH (09:39)
[2016-05-09] MEDS: Diltiazem CD (24hr) 240 MG CAPSULE PO SCH (09:41)
[2016-05-09] MEDS: TUDORZA IH SCH (09:42)
[2016-05-09] MEDS: NALOXONE PO SCH (09:42)
[2016-05-09] MEDS: BUPRENORPHINE PO SCH (09:42)
[2016-05-09] MEDS: Insulin LISPRO 300 UNITS/3 ML VIAL SQ SCH (09:43)
--- NOTE | 2016-05-09 11:50 | Discharge Summary ---
Addendum entered and electronically signed by Alexis Gay DO 05/09/16 14:05: Correction: MRSA screening was negative Addendum entered and electronically signed by Alexis Gay DO 05/09/16 13:52: Hospital course: 60 yo female with hx of COPD, came in with productive cough and SOB, CT chest showed multifocal pneumonia, she was started on levaquin, zosyn and vanco IV, once bld culture came back negative, vanco was stopped, soon after she got clinically worse, added back vanco IV and she started to improving, MRSA screening was positive but this was otained after vanco, sepsis resolved with abx, CT of chest showed incidental finding of 1.8 cm of focal scarring in right upper lobe and smaller scattered nodules, she will f/u on her CT chest as outpt, she will go home with po steroid taper and doxycycline to also cover for mrsa. Original Note: <Alexis Gay - Last Filed: 05/09/16 11:47> Date of Encounter: 05/09/16 Time of Encounter: 11:47 - Discharge Diagnosis (1) Community acquired pneumonia Priority: Primary Status: Acute (2) Sepsis Status: Acute Qualifiers: Sepsis type: sepsis due to unspecified organism Qualified Code(s): A41.9 - Sepsis, unspecified organism (3) COPD exacerbation Status: Acute (4) Opiate dependence Status: Chronic Qualifiers: Substance use status: uncomplicated Qualified Code(s): F11.20 - Opioid dependence, uncomplicated (5) Tobacco abuse Status: Chronic (6) DVT prophylaxis Status: Acute - Discharge Medications Prescriptions: Doxycycline 100 mg PO BID 5 Days PredniSONE 10 mg PO DAILY #40 tablet Home Medications: Atorvastatin [Lipitor] 40 mg PO QAM 12/25/14 [History] Buprenorphine HCl/Naloxone HCl [Suboxone 8 mg-2 mg Sl Film] 1 each PO BID [History] Diltiazem HCl [Diltiazem 24Hr Cd] 240 mg PO QAM 12/25/14 [History] Lisinopril [Zestril] 40 mg PO QAM 12/25/14 [History] Aspirin Enteric Coated [Aspirin EC] 81 mg PO DAILY #30 tablet. 12/28/14 [Rx] Aclidinium [place] [Tudorza Pressair] 1 puff IH BID 05/04/16 [History] Albuterol Sulfate [Ventolin Hfa] 2 puff IH Q4HR PRN 05/04/16 [History] Omeprazole [PriLOSEC] 40 mg PO DAILY 05/04/16 [History] Tiotropium [Spiriva] 18 mcg IH 0700 05/04/16 [History] Doxycycline 100 mg PO BID 5 Days 05/09/16 [Rx] PredniSONE 10 mg PO DAILY #40 tablet 05/09/16 [Rx] Allergies/Adverse Reactions: Allergies No Known Allergies Allergy (Verified 12/25/14 15:38) Procedures/tests Complete & Pending: Procedures Performed prior 72 hours Category Date Time Status CTA chest [CT angio chest] [CT] Stat Cat Scan 05/07/16 06:48 Completed ECG 12 lead ECG [ECG] Routine Y 05/07/16 06:56 Completed Date of admission: 05/04/16 19:35 Primary care physician: Mayra Ma MD Consults: 05/06/16 11:22 Consult to Respiratory Therapy [CONS] Routine Reason for Consult: unable to remove excretions Call Completed: Yes 05/07/16 09:40 Consult to Pulmonology [CONS] Routine Consulting Provider: [facility] Reason for Consult: hemoptysis, possible lung neoplasm, multifocal pneumonia Call Completed: Yes 05/07/16 11:41 Consult to Respiratory Therapy [CONS] Routine Reason for Consult: please institute flutter valve (acapella device) TID + prn for mucous clearance Call Completed: No Discharging clinician: Alexis Gay Anticipated date of discharge: 05/09/16 - Patient Status Disposition: Home, Self-Care Condition: Good Functional capacity at discharge: independent ambulation Overall status at discharge: patient is progressing back to baseline - Discharge Instructions Instructions: Doxycycline (By mouth), Prednisone (By mouth), Chronic Obstructive Pulmonary Disease (DC), Pneumonia (DC) Follow Up With: Mayra Ma MD [Primary Care Provider] - 05/16/16 10:00 am (F/u in a week for hospital d/c f/u.) Annette Saravia MD [Partnered Physician] - (the offfice will call you with this appointment in 2-3 months) - Diet and Activity Activity: resume usual activities as tolerated Diet: low fat, low cholesterol Hospital course: Ms. Perry is a 60 year old female - Time Spent with Patient Total time spent providing and/or coordinating discharge services: - Constitutional Vitals: Temp Pulse Resp BP Pulse Ox 98.1 F 83 18 159/116 95 05/09/16 07:29 05/09/16 07:29 05/09/16 07:29 05/09/16 07:29 05/09/16 07:29 General appearance: Present: cooperative, A&O X 3, no acute distress, answers questions appropriately <Kip Xiao - Last Filed: 05/09/16 13:12> Date of Encounter: 05/09/16 - Discharge Diagnosis (1) Acute and chronic respiratory failure with hypoxia Priority: Primary Status: Acute (2) COPD exacerbation Priority: Primary Status: Acute (3) Opiate dependence Priority: Secondary Status: Chronic Qualifiers: Substance use status: uncomplicated Qualified Code(s): F11.20 - Opioid dependence, uncomplicated (4) Tobacco abuse Priority: Secondary Status: Chronic (5) Hemoptysis Priority: Secondary Status: Acute (6) Presence of cardiac pacemaker Priority: Secondary Status: Chronic (7) HTN (hypertension) Priority: Secondary Status: Chronic Qualifiers: Hypertension type: essential hypertension Qualified Code(s): I10 - Essential (primary) hypertension (8) HLD (hyperlipidemia) Priority: Secondary Status: Chronic Qualifiers: Hyperlipidemia type: mixed hyperlipidemia Qualified Code(s): E78.2 - Mixed hyperlipidemia Procedures/tests Complete & Pending: Procedures Performed prior 72 hours Category Date Time Status CTA chest [CT angio chest] [CT] Stat Cat Scan 05/07/16 06:48 Completed ECG 12 lead ECG [ECG] Routine Y 05/07/16 06:56 Completed Date of admission: 05/04/16 19:35 Primary care physician: Mayra Ma MD Consults: 05/06/16 11:22 Consult to Respiratory Therapy [CONS] Routine Reason for Consult: unable to remove excretions Call Completed: Yes 05/07/16 09:40 Consult to Pulmonology [CONS] Routine Consulting Provider: [facility] Reason for Consult: hemoptysis, possible lung neoplasm, multifocal pneumonia Call Completed: Yes 05/07/16 11:41 Consult to Respiratory Therapy [CONS] Routine Reason for Consult: please institute flutter valve (acapella device) TID + prn for mucous clearance Call Completed: No Hospital course: Ms. Perry is a 60 year old female - Time Spent with Patient Total time spent providing and/or coordinating discharge services: 38min - Constitutional Vitals: Temp Pulse Resp BP Pulse Ox 98.1 F 83 18 159/116 95 05/09/16 07:29 05/09/16 07:29 05/09/16 07:29 05/09/16 07:29 05/09/16 07:29 - Attending Attestation I examined this patient and my medical decision-making was reviewed with the Resident Physician on 05/09/16. I agree with the documented findings, disposition and treatment plan as described except to the extent set forth below. Ms. Perry is nearly at baseline at this time. She slept OK. No further hemoptysis. No fever. BP good. Exam Alert. Comfortable Heart reg No wheeze Plan D/C today Follow up with PCP and pulm Smoking cessation Repeat CT in 4-6 weeks.
[2016-05-09] MEDS ORDERED: FLU VACC QS2016-17 36MOS UP/PF 0.5 ML SYRINGE IM ONE (12:04)
[2016-05-09] MEDS ORDERED: Aminoglycoside Consult 1 EACH MC ONE (12:54)
== END 2016-05-09 12:55 | disposition home or self-care (01) | DRG 720 ==
LOC: EMEROO 17:21 → 2NENU 19:35
PROVIDERS: ADMIT Internal Medicine; ATTEND Internal Medicine

== ENCOUNTER 2017-02-13 09:25 | Observation (INO) ==
[2017-02-13] MEDS ORDERED: Aspirin 81 MG TAB.CHEW PO ONE (09:28)
[2017-02-13 09:43] LABS: Basophils % 0.4 %; Eosinophils # 0.2 K/mcL (0.0-0.6); Eosinophils % 1.6 %; Hematocrit 39.5 % (35.3-44.9); Hemoglobin 13.4 g/dL (11.5-15.4); Immature Granulocytes % 0.4 % (0-4); Immature Platelets 2.3 % (1.1-6.1); Lymphocytes # 2.5 K/mcL (0.6-4.6); Lymphocytes % 25.2 %; Mean Corpuscular HGB Conc 33.9 g/dL (31.6-35.5); Mean Corpuscular Hemoglobin 31.1 pg (28.0-33.3); Mean Corpuscular Volume 91.6 fL (83.0-100.0); Mean Platelet Volume 8.8 fL (9.4-12.4); Monocytes # 0.8 K/mcL (0.0-1.3); Monocytes % 8.2 %; Neutrophils # 6.4 K/mcL (1.6-8.9); Platelet Count 424 K/mcL (140-400); Red Blood Count 4.31 M/mcL (3.82-4.97); Red Cell Distribution Width 11.6 % (11.5-14.5); Segmented Neutrophils % 64.2 %
--- NOTE | 2017-02-13 09:46 | Emergency Department Note ---
Disposition Clinical Impression: Chest pain of uncertain etiology Disposition: Admitted As Inpatient Condition: Fair Referrals: Alvin Guevara MD [Primary Care Provider] - Forms: ED Satisfaction Letter Time of Disposition: 12:56 Chest Pain HPI - General Chief Complaint: ED Chest Pain Stated Complaint: HTN Time Seen by Provider: 02/13/17 09:28 Source: patient Limitations: no limitations Vital Signs Reviewed: Yes Nursing Notes Reviewed: Yes - History of Present Illness HPI Narrative: Mrs. Perry, 61-year-old female, presents from home via EMS for evaluation of , "chest fullness." Onset 1 hour prior to arrival. She has difficulty explaining the pain other than a painful fullness. She denies shortness or stabbing, dullness, or heaviness. Nonradiating. Does not have associated nausea, vomiting, tingling, weakness, diaphoresis, dyspnea. She is currently experiencing her symptoms. She is also concerned as her blood pressure was systolic 171 and round PMH: Third-degree block with pacemaker in place. Hypertension. COPD. No history of ACS. Habits: Current every day smoker Severity scale (1-10): 5 - Related Data Home Medications Medication Instructions Recorded Confirmed Atorvastatin [Lipitor] 40 mg PO QAM 12/25/14 02/13/17 Buprenorphine HCl/Naloxone HCl 1 each PO BID 12/25/14 02/13/17 [Suboxone 8 mg-2 mg Sl Film] Diltiazem HCl [Diltiazem 24Hr Cd] 240 mg PO QAM 12/25/14 02/13/17 Lisinopril [Zestril] 40 mg PO QAM 12/25/14 02/13/17 Albuterol Sulfate [Ventolin Hfa] 2 puff IH Q4HR PRN 05/04/16 02/13/17 Amitriptyline [Elavil] 25 mg PO HS 02/13/17 02/13/17 Fluticasone/Vilanterol [Breo 1 puff IH DAILY 02/13/17 02/13/17 Ellipta 100-25 Mcg INH] Montelukast [Singulair] 10 mg PO DAILY 02/13/17 02/13/17 Omeprazole [PriLOSEC] 20 mg PO DAILY 02/13/17 02/13/17 Tizanidine HCl 4 mg PO TID 02/13/17 02/13/17 Previous Rx's Medication Instructions Recorded Aspirin Enteric Coated [Aspirin EC] 81 mg PO DAILY #30 tablet. 12/28/14 Allergies Allergy/AdvReac Type Severity Reaction Status Date / Time No Known Allergies Allergy Verified 12/25/14 15:38 All systems ED: reviewed and negative except as stated. Review of Systems: As Per HPI Chest Pain PMH - Past Medical History Medical history: Reports: arthritis, asthma, COPD, GERD, hypertension, other Surgical history: Reports: hysterectomy (for cervical carcer.), orthopedic, other (right rotator cuff repair.), pacemaker/AICD (for complete heart block), thyroidectomy (for goiter) Psychiatric history: Reports: anxiety [employer] history: Reports: bilateral tubal ligation - Social History Smoking Status: Current every day smoker Alcohol use: Reports: occasionally Drug use: Reports: prescription drug abuse Physical Exam Vital Signs Reviewed General: Patient is alert, oriented, and in mild distress from her nausea. HEENT: No facial asymmetry. Head is normocephalic and atraumatic. PERRLA. Oral mucosa moist. Trachea midline. Cardiovascular: Heart regular rate and rhythm without clicks, rubs, gallops, or murmurs. No JVD. PMI nondisplaced. No pedal edema. Bilateral radial posterior tibial pulses 2/4 and equal. Respiratory: Symmetric chest rise with poor respiratory effort. Prolonged expiratory phase. Bilateral breath sounds are clear without wheezing, crackles , or rhonchi. Abdomen: Bowel sounds present normoactive x-4 quadrants. Abdomen is soft, nondistended, and nontender. No organomegaly noted. Musculoskeletal: Spontaneously moving all extremities. No chest wall tenderness to palpation. Skin: Warm, dry, intact. Psych: Patient's affect is appropriate for situation. - General Limitations: no limitations General appearance: alert Course Course Narrative: Patient story is concerning for possible ACS. Chronic risk factors include previous cardiac disease with pacemaker place making EKG unreliable. Also occurring every day smoker. Additionally, PE is a possibility given patient's current workup for suspicious breast mass. While d-dimer. D-dimer is elevated. We will CTA. No renal insufficiency. EKG morphologically unchanged from previous. Initial troponin 0. Chest x-ray unremarkable. After discussing with the patient her risk factors and the initial troponin level being within the nondiagnostic or no, she agrees to admission for chest pain rule out ACS. I discussed the patient with the admitting hospitalist, Dr. Loera, who agrees to accept the patient for continued evaluation and management. Vital Signs Temperature 98.2 F 02/13/17 09:27 Pulse Rate 91 02/13/17 09:27 Respiratory Rate 14 02/13/17 09:27 Blood Pressure 149/93 02/13/17 09:27 O2 Sat by Pulse Oximetry 97 02/13/17 09:27 Temperature 98.2 F 02/13/17 09:27 Pulse Rate 82 02/13/17 10:48 Respiratory Rate 12 02/13/17 10:48 Blood Pressure 120/73 02/13/17 10:48 O2 Sat by Pulse Oximetry 97 02/13/17 10:48 Oxygen Delivery Oxygen Delivery Room Air Chest Pain - Medical Records Medical records reviewed: Yes I reviewed the patient's medical records. - Lab Data Lab results reviewed: Yes I reviewed the patient's lab results. Result diagrams: 02/13/17 09:34 02/13/17 09:34 Lab Results 02/13/17 02/13/17 02/13/17 Range/Units 09:34 09:34 09:34 WBC 9.9 (4.3-11.1) K/mcL RBC 4.31 (3.82-4.97) M/mcL Hgb 13.4 (11.5-15.4) g/dL Hct 39.5 (35.3-44.9) % MCV 91.6 (83.0-100.0) fL MCH 31.1 (28.0-33.3) pg MCHC 33.9 (31.6-35.5) g/dL RDW 11.6 (11.5-14.5) % Plt Count 424 H (140-400) K/mcL MPV 8.8 L (9.4-12.4) fL Immature Gran % 0.4 (0-4) % Seg Neutrophils % 64.2 % Lymphocytes % 25.2 % Monocytes % 8.2 % Eosinophils % 1.6 % Basophils % 0.4 % Neutrophils # 6.4 (1.6-8.9) K/mcL Lymphocytes # 2.5 (0.6-4.6) K/mcL Monocytes # 0.8 (0.0-1.3) K/mcL Eosinophils # 0.2 (0.0-0.6) K/mcL Basophils # 0.0 (0.0-0.2) K/mcL Immature Plt Fraction 2.3 (1.1-6.1) % PT 10.1 (9.4-12.1) Seconds INR 0.9 APTT 29.1 (26.0-36.0) Seconds D-Dimer (0-500) ng/mLFEU Sodium 131 L (136-145) mEq/L Potassium 3.8 (3.5-4.5) mEq/L Chloride 97 L (98-109) mEq/L Carbon Dioxide 21 (19-29) mEq/L BUN 7 (7-20) mg/dL Creatinine 0.73 (0.57-1.11) mg/dL Est GFR ( Amer) > 60 (> 60) Est GFR (Non-Af Amer) > 60 (> 60) BUN/Creatinine Ratio 10 (6-26) Glucose 126 H (70-99) mg/dL Calculated Osmolality 272 L (280-300) Calcium 9.3 (8.6-10.8) mg/dL Troponin I (0-0.03) ng/mL 02/13/17 02/13/17 Range/Units 09:34 09:34 WBC (4.3-11.1) K/mcL RBC (3.82-4.97) M/mcL Hgb (11.5-15.4) g/dL Hct (35.3-44.9) % MCV (83.0-100.0) fL MCH (28.0-33.3) pg MCHC (31.6-35.5) g/dL RDW (11.5-14.5) % Plt Count (140-400) K/mcL MPV (9.4-12.4) fL Immature Gran % (0-4) % Seg Neutrophils % % Lymphocytes % % Monocytes % % Eosinophils % % Basophils % % Neutrophils # (1.6-8.9) K/mcL Lymphocytes # (0.6-4.6) K/mcL Monocytes # (0.0-1.3) K/mcL Eosinophils # (0.0-0.6) K/mcL Basophils # (0.0-0.2) K/mcL Immature Plt Fraction (1.1-6.1) % PT (9.4-12.1) Seconds INR APTT (26.0-36.0) Seconds D-Dimer 1655 H (0-500) ng/mLFEU Sodium (136-145) mEq/L Potassium (3.5-4.5) mEq/L Chloride (98-109) mEq/L Carbon Dioxide (19-29) mEq/L BUN (7-20) mg/dL Creatinine (0.57-1.11) mg/dL Est GFR ( Amer) (> 60) Est GFR (Non-Af Amer) (> 60) BUN/Creatinine Ratio (6-26) Glucose (70-99) mg/dL Calculated Osmolality (280-300) Calcium (8.6-10.8) mg/dL Troponin I 0.00 (0-0.03) ng/mL - Radiology Data Radiology results reviewed: Yes I reviewed the patient's radiology results. Chest X-Ray 02/13/17 09:28 IMPRESSION: No active cardiopulmonary disease D/ / Modesto Ortez MD / Modesto Ortez MD Interpreting Provider: Modesto Ortez MD - EKG Data EKG attestation: Yes I reviewed and interpreted this EKG. EKG results narrative: EKG dated 02/13/17 at 09:29 interpreted as ventricularly paced. Tachycardic with a rate of 108. Normal intervals. Wave forms morphologically unchanged from previous EKG dated 05/07/2016. Heart Score - Score History: Slightly Suspicious EKG: Non Specific repolarisation Disturbance Age: 45-65 Risk Factors: Equal/Greater than 3 risk factor or history of atherosclerotic disease Troponin: Less than normal limit HEART Score Total: 4 Attestation Statement - Attestation Attestation: I examined this patient and my medical decision-making was reviewed with the Resident Physician. I agree with the documented findings, disposition and treatment plan as described except to the extent set forth below. Patient presents to the ED with a chief complaint of chest and left arm pain. She states she has been having some aching in the left upper arm. Today she had sharp pain in the cervical chest. She states she got tight in her neck and jaw as well. She is trying to attribute the pain to a bump in her left arm that she has had for a year. Cardiac history of a third-degree heart block. She states her heart catheter at that time in 2008 at [facility] in her arteries" were fine." On examination she is in no acute distress. Her lungs are clear. Her blood pressure is good here in the 120 systolic. She is pain-free in her chest on my evaluation. Plan. Cardiac workup including a d-dimer as she is currently being evaluated for possible breast mass.
[2017-02-13 09:51] LABS: INR 0.9; Prothrombin Time 10.1 Seconds (9.4-12.1)
[2017-02-13 09:53] LABS: Activated Partial Thrombo Time 29.1 Seconds (26.0-36.0)
[2017-02-13 09:55] LABS: BUN/Creatinine Ratio 10 (6-26); Blood Urea Nitrogen 7 mg/dL (7-20); Calcium 9.3 mg/dL (8.6-10.8); Carbon Dioxide 21 mEq/L (19-29); Chloride 97 mEq/L (98-109); Glucose 126 mg/dL (70-99); Osmolality,Calculated 272 (280-300); Potassium 3.8 mEq/L (3.5-4.5); Sodium 131 mEq/L (136-145); eGFR For African Americans > 60 (> 60); eGFR For Non-African Americans > 60 (> 60)
[2017-02-13] MEDS ORDERED: Naloxone 0.4 MG/ML INJ IVP PRN (14:45)
--- NOTE | 2017-02-13 15:33 | Internal Med History&Physical ---
Date of Encounter: 02/13/17 Time of Encounter: 15:23 Assessment and Plan (1) Chest pain Current visit: Yes Status: Acute Patient experienced midsternal chest pressure this a.m. notes blood pressure was elevated she took her blood pressure medicine as well as is given aspirin. Her chest pressure resolved and blood pressure normalized. Suspect chest pain related to hypertension. Patient has had a history of complete heart block with pacemaker and ICD placement. She did have a cardiac stress test in 2014 which she states was negative. First troponin was 0 we will continue to trend troponins 2 we will continue aspirin and statin 3 nitrates as needed for chest pain 4 continuous cardiac monitoring 5. No chest pain or elevation in troponin we will perform cardiac stress test as outpatient-patient to follow up with customer counter associate Mouna Rojas Qualifiers: Chest pain type: unspecified Qualified Code(s): R07.9 - Chest pain, unspecified (2) HTN (hypertension) Current visit: No Status: Chronic Presently controlled patient states she had elevated blood pressure this a.m. and experienced chest pain-presently back to baseline we will continue with home medications Qualifiers: Hypertension type: essential hypertension Qualified Code(s): I10 - Essential (primary) hypertension (3) HLD (hyperlipidemia) Current visit: No Status: Chronic Continue with statin Qualifiers: Hyperlipidemia type: mixed hyperlipidemia Qualified Code(s): E78.2 - Mixed hyperlipidemia (4) Alcohol abuse Current visit: No Status: Chronic Patient states she drinks a 6 pack every day we will place patient on CIWA precautions (5) Smoking addiction Current visit: No Status: Chronic Patient smokes 2-3 packs of cigarettes daily. Discussed smoking cessation offered nicotine patch which patient agreed (6) Community acquired pneumonia Current visit: Yes Status: Acute Patient does have history of COPD, past smoker and daily drinker. There is some suspicion for possible breast cancer. She has a chronic cough and no change in sputum production no fevers or leukocytosis. We will cover with Augmentin for 1 week patient to follow-up with outpatient chest x-ray Continue with bronchodilators Continue with oxygen Qualifiers: Laterality: right Lung location: upper lobe of lung Qualified Code(s): J18.1 - Lobar pneumonia, unspecified organism (7) COPD (chronic obstructive pulmonary disease) Current visit: No Status: Chronic Continue with oxygen and bronchodilator Qualifiers: COPD type: unspecified COPD Qualified Code(s): J44.9 - Chronic obstructive pulmonary disease, unspecified (8) Breast asymmetry Current visit: Yes Status: Acute Outpatient Ultrasound of breast asymmetry in the right lower inner breast persists with additional images and corresponds to a nonspecific hypoechoic lesion measuring 4 mm. she is to undergo needle biopsy tomorrow morning at 9: 30 AM as an outpatient. Patient to follow-up PCP (9) DVT prophylaxis Current visit: No Status: Acute Encourage ambulation-RAGHU vargas Internal Medicine - H&P: HPI Chief complaint: CP Admitted From: Emergency Dept Plans for Post Hospital Care: Home History of present illness: Ms. Perry is a 61 year old female patient has a past history of COPD oxygen dependent GERD complete heart block with pacemaker and ICD placement hypertension she is a smoker as well as she drinks 6 pack of beer daily. This a.m. she was participating in her daily activities she began to experience chest fullness midsternal nonradiating. She did not have any associated symptoms of nausea vomiting shortness of breath or lightheadedness. She did check her blood pressure which she states it was 170/110 she proceeded to take her blood pressure medicines and presented to the ER for evaluation. Upon arrival to the ER her chest pain had subsided, blood pressure had improved she was given an aspirin. Lab work was obtained which did show some hyponatremia which patient states is chronic as well as elevated d-dimer 49041 CTA of chest was obtained which did show some ground glass opacity and right upper lobe. She denies any fevers chills she does have a chronic cough no change in sputum production she does not have a leukocytosis. She is been admitted for further workup and evaluation. Presently patient is chest pain-free she denies any shortness of breath states she she actually feels better just tired. Her blood pressure has returned to baseline. She is hemodynamically stable this time. I did review this case with Dr. English who agrees with plan Past Med Surg Social Fam HX - Past Medical History Medical history: arthritis, asthma, COPD, GERD, hypertension, other Psychiatric history: anxiety - Past Surgical History Surgical History: hysterectomy (for cervical carcer.), orthopedic, other (right rotator cuff repair.), pacemaker/AICD (for complete heart block), thyroidectomy (for goiter) - Social History Smoking Status: Current every day smoker Smokeless Tobacco Status: No Alcohol use: occasionally Drug use: prescription drug abuse - Family History Mother Living Status: Still Living Hx Family Cardiac Disorders: Yes Hx Family Respiratory Disorders: Yes Hx Family Cancer: Yes Hx Family Neuromuscular Disorders: (parkinsons) Father Living Status: Hx Family Cardiac Disorders: Yes Internal Medicine - H&P: Meds Atorvastatin [Lipitor] 40 mg PO QAM 12/25/14 [History] Buprenorphine HCl/Naloxone HCl [Suboxone 8 mg-2 mg Sl Film] 1 each PO BID [History] Diltiazem HCl [Diltiazem 24Hr Cd] 240 mg PO QAM 12/25/14 [History] Lisinopril [Zestril] 40 mg PO QAM 12/25/14 [History] Aspirin Enteric Coated [Aspirin EC] 81 mg PO DAILY #30 tablet. 12/28/14 [Rx] Albuterol Sulfate [Ventolin Hfa] 2 puff IH Q4HR PRN 05/04/16 [History] Amitriptyline [Elavil] 25 mg PO HS 02/13/17 [History] Fluticasone/Vilanterol [Breo Ellipta 100-25 Mcg INH] 1 puff IH DAILY 02/13/17 [ History] Montelukast [Singulair] 10 mg PO DAILY 02/13/17 [History] Omeprazole [PriLOSEC] 20 mg PO DAILY 02/13/17 [History] Tizanidine HCl 4 mg PO TID 02/13/17 [History] 3 Allergy/AdvReac Type Severity Reaction Status Date / Time No Known Allergies Allergy Verified 12/25/14 15:38 All Systems PM: A 10-system review of systems was performed and is negative for pertinent findings except as documented above in the HPI. - Constitutional Constitutional: no chills, no fever(s), no night sweats - EENT Eyes: no change in vision, no discharge, no pain, no photophobia Ears: no ear discharge, no ear pain, no tinnitus Nose, mouth and throat: no dysphagia, no nasal discharge, no neck pain, no sore throat - Cardiovascular Cardiovascular ROS IM: chest pain, no diaphoresis, no dyspnea, no lightheadedness, no palpitations, no syncope - Respiratory Respiratory: no cough, no dyspnea, no wheezing, no excessive phlegm production - Gastrointestinal Gastrointestinal: no abdominal pain, no diarrhea, no hematemesis, no hematochezia, no melena, no nausea, no vomiting - Genitourinary Genitourinary: no change in urinary stream, no dysuria, no flank pain, no hematuria - Musculoskeletal Musculoskeletal ROS IM: no numbness, no tingling - Integumentary Integumentary IM: no rash, no unusual bruising - Neurological Neurological ROS: no confusion, no convulsions, no focal weakness, no numbness, no tingling, no tremor(s) - Hematologic/Lymphatic Hematologic/Lymphatic: no easy bruising - Constitutional Vitals: Temp Pulse Resp BP Pulse Ox 98.2 F 68 16 127/89 98 02/13/17 09:27 02/13/17 13:05 02/13/17 13:05 02/13/17 13:05 02/13/17 13:05 General appearance: Present: A&O X 3 - Head Head exam: Present: atraumatic, normocephalic - Eye Eye exam: Present: PERRL, conjuntiva pink, sclera anicteric Pupils: Present: PERRL - Neck Neck exam general surgery: Present: supple, trachea midline. Absent: lymphadenopathy - Respiratory Respiratory exam: Present: rhonchi. Absent: accessory muscle use, rales, wheezes - Cardiovascular Cardiovascular exam: Present: RRR, +S1, +S2. Absent: diastolic murmur, gallop, rubs, systolic murmur - GI/Abdominal GI/Abdominal exam: Present: normal bowel sounds, soft, no peritoneal signs. Absent: distended, tenderness - Extremities Exam Extremities exam: Present: warm, radial pulses palpable and symmetrical. Absent : calf tenderness, cyanotic, pedal edema - Neurological Exam Neurological exam: Present: CN II-XII intact, oriented X3, no focal deficits. Absent: pronater drift, facial droop, speech deficit - Skin Skin exam: Present: dry, intact Internal Med - H&P Results - Labs CBC & Chem 7: 02/13/17 09:34 02/13/17 09:34 - EKG Data Prior EKG available for review: yes When compared to previous EKG: there is no significant change EKG comments: 02/13/17 15:44 Paced rhythm - Diagnostic Studies Other Images Additional comments: Chest X-Ray 02/13/17 09:28 IMPRESSION: No active cardiopulmonary disease D/ / Modesto Ortez MD / Modesto Ortez MD Interpreting Provider: Modesto Ortez MD Chest CTA 02/13/17 10:21 IMPRESSION: 1. No evidence of pulmonary embolism 2. New ground-glass infiltrate in the right upper lobe. Recommend correlation with any clinical findings of pneumonia 3. Stable bilateral lower lobe pulmonary nodules on a background of pulmonary emphysema D/ / Modesto Ortez MD / Modesto Ortez MD Interpreting Provider: Modesto Ortez MD
[2017-02-13] MEDS ORDERED: Albuterol 2.5 MG/3 ML NEBULIZER IH PRN (15:58)
[2017-02-13] MEDS ORDERED: *HR* LORazepam 2 MG/ML VIAL IVP PRN ×3 (15:59)
[2017-02-13] MEDS: Ipratropium/Albuterol Neb 3 ML IH SCH (16:40)
[2017-02-13] MEDS: Vitamin B Complex/Vit C/Vit E 1 EACH TABLET PO SCH (17:02)
[2017-02-13] MEDS: Folic Acid 1 MG TABLET PO SCH (17:02)
[2017-02-13] MEDS: Nicotine 21 MG PATCH.TD24 TD SCH (17:02)
[2017-02-13] MEDS: tiZANidine 4 MG TABLET PO SCH ×3 (17:02→23:31)
[2017-02-13] MEDS: Thiamine (B-1) 100 MG TABLET PO SCH (17:02)
[2017-02-13] MEDS: Amoxicillin/Clavulanate 250 MG TABLET PO SCH (19:50)
[2017-02-13] MEDS: predniSONE 20 MG TABLET PO SCH (23:30)
[2017-02-14] MEDS: Ipratropium/Albuterol Neb 3 ML IH SCH ×3 (00:47→10:45)
[2017-02-14 03:08] LABS: Basophils % 0.3 %; Eosinophils # 0.1 K/mcL (0.0-0.6); Hematocrit 36.6 % (35.3-44.9); Hemoglobin 12.1 g/dL (11.5-15.4); Immature Granulocytes % 0.3 % (0-4); Lymphocytes # 0.7 K/mcL (0.6-4.6); Lymphocytes % 6.1 %; Mean Corpuscular HGB Conc 33.1 g/dL (31.6-35.5); Mean Corpuscular Hemoglobin 30.8 pg (28.0-33.3); Mean Corpuscular Volume 93.1 fL (83.0-100.0); Monocytes # 0.2 K/mcL (0.0-1.3); Monocytes % 1.8 %; Neutrophils # 9.8 K/mcL (1.6-8.9); Platelet Count 343 K/mcL (140-400); Red Blood Count 3.93 M/mcL (3.82-4.97); Red Cell Distribution Width 11.8 % (11.5-14.5); Segmented Neutrophils % 90.5 %
[2017-02-14 03:26] LABS: BUN/Creatinine Ratio 14 (6-26); Blood Urea Nitrogen 10 mg/dL (7-20); Calcium 8.9 mg/dL (8.6-10.8); Carbon Dioxide 27 mEq/L (19-29); Chloride 101 mEq/L (98-109); Chol/HDL Ratio 2.4 (0-4.9); Cholesterol 115 mg/dL (< 200); Glucose 116 mg/dL (70-99); HDL Cholesterol 47 mg/dL (40-59); LDL Cholesterol,Calculated 47 mg/dL (0-99); Magnesium 1.8 mg/dL (1.6-2.6); Osmolality,Calculated 282 (280-300); Sodium 136 mEq/L (136-145); Triglycerides 103 mg/dL (< 150); eGFR For African Americans > 60 (> 60); eGFR For Non-African Americans > 60 (> 60)
[2017-02-14 03:36] LABS: Potassium 4.9 mEq/L (3.5-4.5)
[2017-02-14] MEDS ORDERED: Lisinopril 20 MG TABLET PO SCH (09:00)
[2017-02-14] MEDS ORDERED: (Fluticasone/Vilanterol [Breo Ellipta 100-25 Mcg Inh]) IH SCH (09:00)
[2017-02-14] MEDS ORDERED: Diltiazem CD (24hr) 120 MG CAPSULE PO SCH (09:00)
[2017-02-14] MEDS ORDERED: Aspirin Enteric Coated 81 MG Tablet PO SCH (09:00)
[2017-02-14] MEDS: Thiamine (B-1) 100 MG TABLET PO SCH (09:01)
[2017-02-14] MEDS: Amoxicillin/Clavulanate 250 MG TABLET PO SCH (09:01)
[2017-02-14] MEDS: predniSONE 20 MG TABLET PO SCH (09:01)
[2017-02-14] MEDS: tiZANidine 4 MG TABLET PO SCH (09:01)
[2017-02-14] MEDS: Nicotine 21 MG PATCH.TD24 TD SCH (09:01)
[2017-02-14] MEDS: Vitamin B Complex/Vit C/Vit E 1 EACH TABLET PO SCH (09:02)
[2017-02-14] MEDS: Folic Acid 1 MG TABLET PO SCH (09:02)
--- NOTE | 2017-02-14 10:08 | Discharge Summary ---
Date of Encounter: 02/14/17 Time of Encounter: 08:00 - Discharge Diagnosis (1) Acute exacerbation of chronic obstructive airways disease Priority: Primary Status: Acute Comments: Acute exacerbation of COPD with acute bronchitis - possible right upper lobe pneumonia, present on admission - symptoms slowly improving, patient continues to have cough with productive sputum and mild wheezing Continue DuoNeb breathing treatment, Augmentin, O2 via NC, Breo, Prednisone, Singulair CTA chest - no PE, groundglass infiltrate in the right upper lobe Chest x-ray - no active cardiopulmonary disease EKG - paced rhythm, no acute ST-T changes Troponin - negative Patient is adamant about being discharged today, states she has to take her son to an appointment - she has been advised at least 1 more day of stay in the hospital, but she refuses to stay and requests to be discharged Advised to return if symptoms worsen Advised close outpatient follow-up with PCP, continue all home medications (2) Acute bronchitis Priority: Primary Status: Acute Comments: Acute bronchitis with acute COPD exacerbation, present on admission - symptoms slowly improving Plan as above Qualifiers: Bronchitis organism: unspecified organism Qualified Code(s): J20.9 - Acute bronchitis, unspecified (3) Atypical chest pain Priority: Primary Status: Acute Comments: Atypical chest pain - symptoms now resolved - likely secondary to acute bronchitis and acute COPD exacerbation EKG - paced rhythm, no acute ST-T changes Troponin - negative (4) Presence of cardiac pacemaker Priority: Secondary Status: Chronic Comments: History of cardiac pacemaker placement Patient follows up with Dr. Rojas, cardiology as outpatient (5) Tobacco abuse Priority: Secondary Status: Chronic Comments: Patient states she smokes about 3 packs cigarettes daily Counseled about cessation Advised to use nicotine patch and nicotine gum (6) Breast asymmetry Priority: Secondary Status: Acute Comments: Patient is scheduled for outpatient needle biopsy Nonspecific hypoechoic lesion measuring 4 mm (7) Alcohol abuse Priority: Secondary Status: Chronic Comments: Patient states she drinks a 6 pack of beer daily Counseled about cessation - Discharge Medications Prescriptions: Ipratropium/Albuterol Neb [Duoneb] 3 ml IH Q4HR #30 inhsol Amoxicillin/Clavulanate [Augmentin] 875 mg PO BIDWM 10 Days #20 tablet Folic Acid 1 mg PO DAILY #30 tablet GuaiFENesin ER [Mucinex] 1,200 mg PO BID #10 tbbp.12hr Nicotine Patch [Nicoderm] 14 mg TD DAILY #30 patch.td24 predniSONE [PredniSONE] 20 mg PO DAILY #10 tablet Thiamine (B-1) [Vitamin B-1] 100 mg PO DAILY #30 tablet Vitamin B Complex/Vit C/Vit E [Stresstab] 1 each PO DAILY #30 tablet Home Medications: Atorvastatin [Lipitor] 40 mg PO QAM 12/25/14 [History] Buprenorphine HCl/Naloxone HCl [Suboxone 8 mg-2 mg Sl Film] 1 each PO BID [History] Diltiazem HCl [Diltiazem 24Hr Cd] 240 mg PO QAM 12/25/14 [History] Lisinopril [Zestril] 40 mg PO QAM 12/25/14 [History] Aspirin Enteric Coated [Aspirin EC] 81 mg PO DAILY #30 tablet. 12/28/14 [Rx] Albuterol Sulfate [Ventolin Hfa] 2 puff IH Q4HR PRN 05/04/16 [History] Amitriptyline [Elavil] 25 mg PO HS 02/13/17 [History] Fluticasone/Vilanterol [Breo Ellipta 100-25 Mcg INH] 1 puff IH DAILY 02/13/17 [ History] Montelukast [Singulair] 10 mg PO DAILY 02/13/17 [History] Omeprazole [PriLOSEC] 20 mg PO DAILY 02/13/17 [History] Tizanidine HCl 4 mg PO TID 02/13/17 [History] Amoxicillin/Clavulanate [Augmentin] 875 mg PO BIDWM 10 Days #20 tablet 02/14/17 [Rx] Folic Acid 1 mg PO DAILY #30 tablet 02/14/17 [Rx] GuaiFENesin ER [Mucinex] 1,200 mg PO BID #10 tbbp.12hr 02/14/17 [Rx] Ipratropium/Albuterol Neb [Duoneb] 3 ml IH Q4HR #30 inhsol 02/14/17 [Rx] Nicotine Patch [Nicoderm] 14 mg TD DAILY #30 patch.td24 02/14/17 [Rx] Thiamine (B-1) [Vitamin B-1] 100 mg PO DAILY #30 tablet 02/14/17 [Rx] Vitamin B Complex/Vit C/Vit E [Stresstab] 1 each PO DAILY #30 tablet 02/14/17 [ Rx] predniSONE [PredniSONE] 20 mg PO DAILY #10 tablet 02/14/17 [Rx] Allergies/Adverse Reactions: 3 Allergy/AdvReac Type Severity Reaction Status Date / Time No Known Allergies Allergy Verified 12/25/14 15:38 Date of admission: 02/13/17 15:12 Primary care physician: Alvin Guevara MD Anticipated date of discharge: 02/14/17 - Patient Status Disposition: Home, Self-Care Condition: Fair Functional capacity at discharge: independent ambulation Overall status at discharge: patient is progressing back to baseline - Discharge Instructions Instructions: Decongestant/Expectorant (By mouth), Albuterol (By breathing), Thiamine (Vitamin B-1) (By mouth), Amoxicillin/Clavulanate Potassium (By mouth) , Folic Acid (By mouth), Nicotine (Absorbed through the skin), Vitamin B Complex (By mouth), Bacterial Pneumonia (DC) Follow Up With: Alvin Guevara MD [Primary Care Provider] - 02/16/17 4:00 pm - Diet and Activity Activity: increase activity as tolerated, resume usual activities as tolerated, wear oxygen at all times Diet: low fat, low cholesterol, low salt diet Hospital course: Ms. Perry is a 61 year old female with past medical history arthritis, COPD , GERD, hypertension and history of pacemaker placement for complete heart block. She presented to the ED with complaints of chest pain. She also complained of uncontrolled blood pressure at the time of admission. She did have elevated d-dimer and CTA of the chest showed some groundglass opacity, negative for PE. EKG revealed paced rhythm with no acute ST changes. Troponin is negative. Patient was continued on aspirin. She likely has acute exacerbation of COPD with acute bronchitis. She was started on Augmentin and DuoNeb breathing treatment. She was continued on by mouth and prednisone. Patient states she has a outpatient appointment for a breast biopsy. Patient was advised that she will need at least 1-2 days stay in the hospital for her COPD exacerbation and bronchitis. Patient refused to stay and is adamant about being discharged. Patient did not have any other acute events or complications during her stay in the hospital. She has been advised to continue O2 via nasal cannula and also continue DuoNeb breathing treatment and to complete Augmentin course. She has also been advised To do some tapering dose. She has been advised to return his symptoms worsen. Advised to follow-up with primary care physician this week. Patient has been explained about her condition and plan of care in detail. She understood and agreed. No unanswered questions. Again patient was offered at least 1 more day stay in the hospital but she refuses. Time spent discussing smoking cessation with patient: 3 to 10 minutes - Time Spent with Patient Total time spent providing and/or coordinating discharge services: Less than 30 minutes - Constitutional Vitals: Temp Pulse Resp BP Pulse Ox 97.8 F 81 16 149/85 94 02/14/17 06:43 02/14/17 06:43 02/14/17 06:43 02/14/17 06:43 02/14/17 06:43 General appearance: Present: cooperative, A&O X 3, pleasant, no acute distress, underweight, answers questions appropriately - Head Head exam: Present: atraumatic - Eye Eye exam: Present: EOMI - ENT ENT exam: Present: mucous membranes moist - Respiratory Respiratory exam: Present: wheezes (Bilateral). Absent: accessory muscle use, chest wall tenderness, rales, rhonchi, tachypnea - Cardiovascular Cardiovascular exam: Present: RRR, +S1, +S2 - GI/Abdominal GI/Abdominal exam: Present: soft. Absent: distended, firm, guarding, tenderness - Extremities Exam Extremities exam: Present: radial pulses palpable and symmetrical. Absent: calf tenderness, cyanotic, pedal edema - Neurological Exam Neurological exam: Present: alert, oriented X3, no focal deficits. Absent: facial droop, speech deficit
[2017-02-14 10:38] VITALS: BP 119/74
--- NOTE | 2017-02-15 15:15 | Electrocardiograph Report ---
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
== END 2017-02-14 12:36 | disposition home or self-care (01) ==
LOC: EMEROO 09:25 → 3BNU 09:25
PROVIDERS: ADMIT Registered Nurse; ATTEND Registered Nurse

== ENCOUNTER 2017-03-14 21:43 | Inpatient (IN) ==
[2017-03-14] MEDS ORDERED: 0.9 % Sodium Chloride 1,000 ML ONE (21:50)
[2017-03-14] MEDS ORDERED: Levofloxacin 750 MG/150 ML 750 MG/150 ML BAG IVPB ONE (22:01)
[2017-03-14] MEDS ORDERED: Vancomycin 750 MG in D5% in Water 250 ML IVPB ONE (22:01)
[2017-03-14] MEDS ORDERED: Piperacillin/Tazobactam 3.375 GM in Water for inj. (sterile) 20 ML IVP ONE (22:01)
[2017-03-14 22:08] LABS: Basophils # 0.1 K/mcL (0.0-0.2); Basophils % 0.3 %; Eosinophils # 0.1 K/mcL (0.0-0.6); Eosinophils % 0.9 %; Hematocrit 32.9 % (35.3-44.9); Hemoglobin 11.2 g/dL (11.5-15.4); Immature Granulocytes % 0.6 % (0-4); Lymphocytes # 2.7 K/mcL (0.6-4.6); Lymphocytes % 17.2 %; Mean Corpuscular Volume 91.1 fL (83.0-100.0); Mean Platelet Volume 8.7 fL (9.4-12.4); Monocytes # 1.3 K/mcL (0.0-1.3); Monocytes % 8.6 %; Neutrophils # 11.3 K/mcL (1.6-8.9); Platelet Count 412 K/mcL (140-400); Red Blood Count 3.61 M/mcL (3.82-4.97); Red Cell Distribution Width 12.3 % (11.5-14.5); Segmented Neutrophils % 72.4 %
[2017-03-14 22:13] LABS: Prothrombin Time 10.9 Seconds (9.4-12.1)
--- NOTE | 2017-03-14 22:14 | Emergency Department Note ---
START Narrative - START START: I examined this patient and my medical decision-making was reviewed with the Resident Physician. I agree with the documented findings, disposition and treatment plan as described except to the extent set forth below. Patient arrived unexplained hypotension and decreased level of alertness. On arrival here, she is Felix received some IV fluids from paramedics and is more alert. Able to cooperate and participate in the history and physical. Initial systolic pressure in the 80s, came up into the 100s with further menstruation of IV fluids. Procedure, emergency bedside ultrasound for unexplained hypotension: Procedure performed by me. Images obtained and interpreted by me. Limited echocardiography showed no pericardial effusion, normal left ventricular function, no signs of right heart strain (normal [id number] septal bowing, normal right ventricular free wall motion, normal right ventricular size relative to left ventricle). Volume assessment suggests a normal central venous pressure, IVC diameter estimated visually as normal, approximately 1.5 cm , with approximately 50% collapse with sniffing. The aorta was reviewed in its entirety from the epigastrium to the bifurcation in the longitudinal and transverse planes showing no evidence of abdominal aortic aneurysm. Given the lack of echocardiographic findings of right heart strain, DVT assessment was not done. There is no clinical suspicion for tension pneumothorax, thoracic ultrasound was not done.
[2017-03-14 22:16] LABS: Activated Partial Thrombo Time 28.3 Seconds (26.0-36.0)
[2017-03-14 22:18] LABS: Alanine Aminotransferase 23 Units/L (0-55); Albumin 2.8 g/dL (3.5-5.0); Albumin/Globulin Ratio 0.9 (1.1-2.2); Alkaline Phosphatase 111 Units/L (38-126); Aspartate Amino Transferase 35 Units/L (5-34); BUN/Creatinine Ratio 9 (6-26); Bilirubin,Direct 0.2 mg/dL (0.0-0.5); Bilirubin,Indirect 0.2 mg/dL (0.0-1.2); Bilirubin,Total 0.4 mg/dL (0.2-1.2); Blood Urea Nitrogen 6 mg/dL (7-20); Calcium 8.4 mg/dL (8.6-10.8); Carbon Dioxide 24 mEq/L (19-29); Chloride 95 mEq/L (98-109); Globulin 3.2 g/dL (2.4-3.5); Glucose 89 mg/dL (70-99); Magnesium 1.5 mg/dL (1.6-2.6); Osmolality,Calculated 267 (280-300); Phosphorous 3.3 mg/dL (2.3-4.7); Potassium 3.7 mEq/L (3.5-4.5); Sodium 130 mEq/L (136-145); eGFR For African Americans > 60 (> 60); eGFR For Non-African Americans > 60 (> 60)
[2017-03-14] MEDS: 0.9 % Sodium Chloride 1,000 ML IVC SCH (22:20)
[2017-03-14] MEDS ORDERED: Hydrocortisone Sodium Succ 100 MG/2 ML VIAL IVP ONE (22:47)
[2017-03-14 23:12] LABS: Bilirubin,Urine Negative (Negative); Blood,Urine Negative (Negative); Clarity,Urine Clear (Clear); Color,Urine Yellow (Yellow); Glucose,Urine (UA) Normal (Normal); Ketones,Urine Negative (Negative); Leukocyte Esterase,Urine Moderate (Negative); Nitrite,Urine Negative (Negative); PH,Urine 6.5 pH Units (5.0-8.0); Protein,Urine Negative (Neg-Trace); Specific Gravity,Urine 1.008 (1.010-1.025); Urobilinogen,Urine Normal (Normal)
[2017-03-14 23:15] LABS: Bacteria,Urine None Seen per hpf (None-Few); Hyaline Casts,Urine None Seen per lpf (None-Few); RBC,Urine 0-3 per hpf (0-3); Squamous Epithelial Cell,Urine Many per lpf (None-Few)
[2017-03-14] MEDS ORDERED: Vancomycin 0 MG in D5% in Water 250 ML IVPB SCH (23:45)
[2017-03-14] MEDS ORDERED: Ipratropium/Albuterol Neb 3 ML IH PRN (23:57)
--- NOTE | 2017-03-15 00:01 | Internal Med History&Physical ---
<Bessy Cabrera - Last Filed: 03/15/17 01:41> Date of Encounter: 03/15/17 Time of Encounter: 23:58 Assessment and Plan (1) Sepsis Current visit: No Status: Acute 2 SIRS criteria: (tachycardia 93, WBC 15.6) afebrile, lactic acid 2.1, hypotensive 86/61 Most likely secondary to community acquired pneumonia demonstrate a chest x-ray She was just admitted and treated for pneumonia 2 weeks ago CXR demonstrated patchy airspace in the right lobe urinalysis: leukocyte Esterase positive IV Cefepime IV vancomycin IV fluids bolus and maintenance blood culture pending urine culture pending lactic acid trending ABG pending respiratory panel ordered Legionella, strep pneuomonia, Mycoplasma ordered Qualifiers: Sepsis type: sepsis due to unspecified organism Qualified Code(s): A41.9 - Sepsis, unspecified organism (2) Pneumonia Current visit: Yes Status: Acute Concern for possible hospital acquired right lobe pneumonia vs acute bronchitis CXR demonstrated patchy airspace in the right lobe. She was just admitted and treated for pneumonia 2 weeks ago WBC 15.6, afebrile Ct chest pending due to recurrence of pneumonia IV Cefepime IV vancomycin duonebs scheduled respiratory panel ordered Legionella, strep pneuomonia, Mycoplasma ordered ABG pending supplemental oxygen tessilon pearls prn Qualifiers: Laterality: right Lung location: unspecified part of lung Qualified Code( s): J18.9 - Pneumonia, unspecified organism (3) Hyponatremia Current visit: No Status: Acute Hypotremia Na 130 Possible adrenal insufficiency due to to hypertensive and intermittent steroid use Hydrocortisone given endocrinology consulted IV fluids given (4) Hypomagnesemia Current visit: Yes Status: Acute (5) COPD (chronic obstructive pulmonary disease) Current visit: No Status: Chronic Patient has a history of COPD taking Breo and on 4L continuous home oxygen not in exacerbation 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 Saravia Continue Breo supplemental oxygen scheduled and PRN duonebs Qualifiers: COPD type: unspecified COPD Qualified Code(s): J44.9 - Chronic obstructive pulmonary disease, unspecified (6) HTN (hypertension) Current visit: No Status: Chronic Patient has hypertension patient was hypotensive at admission, BP is now stable 110/68 Hold lisinopril Qualifiers: Hypertension type: essential hypertension Qualified Code(s): I10 - Essential (primary) hypertension (7) Presence of cardiac pacemaker Current visit: No Status: Chronic (8) Opiate dependence Current visit: No Status: Chronic Patient reported that she is currently being treated for opiate dependence by her PCP with Suboxone continue Suboxone avoid opiates Qualifiers: Substance use status: uncomplicated Qualified Code(s): F11.20 - Opioid dependence, uncomplicated (9) Smoking addiction Current visit: No Status: Chronic Patient is a 1ppd smoker since she was 17 years old she was counseled on smoking cessation (10) DVT prophylaxis Current visit: No Status: Acute [facility] Internal Medicine - H&P: HPI Chief complaint: hypotension and dyspnea Admitted From: Home Plans for Post Hospital Care: Home History of present illness: Ms. Perry is a 61 year old female with a past medical history of COPD, hypertension, hyperlipidemia, pacemaker who presented to the hospital from home complaining of low blood pressure. She stated that this evening around 8:30pm she had ringing in her ears and felt a little light headed. She then took her blood pressure and saw that it was 52/37 and then went to the hospital. She reported that she has had a cough with sputum and dyspnea, wheezing. She denied fever, chills, syncope, chest pain, hemoptysis, change in vision, abdominal pain , nausea, vomiting, melena, dysuria, hematuria. She reported that she was admitted 2 weeks ago for pneumonia and discharged on amoxicillin and prednisone. She stated that her cough has never went away. She is denied recent travel, sick contacts, aspirin use. She still smokes. She is a full code. In ED her blood pressure was 86/61. She was given IV zosyn, vanc, levaquin, hydrocrotisone. CXR demonstrating right lung pneumonia. Past Med Surg Social Fam HX - Past Medical History Source: patient Medical history: arthritis, asthma, COPD, GERD, hyperlipidemia, hypertension, other (pacemaker) Psychiatric history: anxiety - Past Surgical History Surgical History: hysterectomy, orthopedic, other, pacemaker/AICD, thyroidectomy - Social History Smoking Status: Current every day smoker Smokeless Tobacco Status: No Alcohol use: heavy Drug use: prescription drug abuse Current living situation: Home Activity Level: Independent ambulation - Family History Mother Living Status: Hx Family Cardiac Disorders: Yes Hx Family Respiratory Disorders: Yes Hx Family Cancer: Yes ("female cancer") Hx Family GI Disorders: No Hx Family Endocrine Disorder: No Hx Family Neuromuscular Disorders: No Hx Family Neurologic Disorders: Yes Hx Family HEENT Disorders: No Hx Family Autoimmune Disorders: No Father Living Status: Hx Family Cardiac Disorders: Yes Hx Family Respiratory Disorders: No Hx Family Cancer: No Hx Family GI Disorders: No Hx Family Endocrine Disorder: No Hx Family Neuromuscular Disorders: No Hx Family Neurologic Disorders: No Hx Family HEENT Disorders: No Hx Family Autoimmune Disorders: No Sister Hx Family Cancer: Yes (breast) Internal Medicine - H&P: Meds Atorvastatin [Lipitor] 40 mg PO QAM 12/25/14 [History] Buprenorphine HCl/Naloxone HCl [Suboxone 8 mg-2 mg Sl Film] 1 each PO BID [History] Diltiazem HCl [Diltiazem 24Hr Cd] 240 mg PO QAM 12/25/14 [History] Lisinopril [Zestril] 40 mg PO QAM 12/25/14 [History] Aspirin Enteric Coated [Aspirin EC] 81 mg PO DAILY #30 tablet. 12/28/14 [Rx] Albuterol Sulfate [Ventolin Hfa] 2 puff IH Q4HR PRN 05/04/16 [History] Amitriptyline [Elavil] 25 mg PO HS 02/13/17 [History] Fluticasone/Vilanterol [Breo Ellipta 100-25 Mcg INH] 1 puff IH DAILY 02/13/17 [ History] Omeprazole [PriLOSEC] 40 mg PO DAILY 02/13/17 [History] Tizanidine HCl 4 mg PO DAILY 02/13/17 [History] Folic Acid 1 mg PO DAILY #30 tablet 02/14/17 [Rx] Ipratropium/Albuterol Neb [Duoneb] 3 ml IH Q4HR #30 inhsol 02/14/17 [Rx] Thiamine (B-1) [Vitamin B-1] 100 mg PO DAILY #30 tablet 02/14/17 [Rx] Vitamin B Complex/Vit C/Vit E [Stresstab] 1 each PO DAILY #30 tablet 02/14/17 [ Rx] predniSONE [PredniSONE] 20 mg PO DAILY #10 tablet 02/14/17 [Rx] 3 Allergy/AdvReac Type Severity Reaction Status Date / Time No Known Allergies Allergy Verified 12/25/14 15:38 All Systems PM: A 10-system review of systems was performed and is negative for pertinent findings except as documented above in the HPI. - Constitutional Constitutional: no chills, no fever(s), no malaise - EENT Eyes: no change in vision Ears: tinnitus Nose, mouth and throat: dry mouth, nasal congestion, no sinus pain, no sore throat - Cardiovascular Cardiovascular ROS IM: no chest pain, no diaphoresis, no edema, no palpitations - Respiratory Respiratory: cough, dyspnea, wheezing, no hemoptysis - Gastrointestinal Gastrointestinal: no abdominal pain, no diarrhea, no melena, no nausea, no vomiting - Genitourinary Genitourinary: no dysuria, no hematuria, no urinary frequency - Musculoskeletal Musculoskeletal ROS IM: no muscle cramps - Integumentary Integumentary IM: no erythema - Neurological Neurological ROS: no frequent falls, no headache(s) - Constitutional Vitals: Temp Pulse Resp BP Pulse Ox 98 F 81 20 110/68 98 03/14/17 21:46 03/14/17 22:34 03/14/17 23:40 03/14/17 23:40 03/14/17 22:34 General appearance: Present: A&O X 3, no acute distress - Head Head exam: Present: atraumatic, normocephalic - Eye Eye exam: Present: conjunctival injection, PERRL - ENT ENT exam: Present: mucous membranes dry - Neck Neck exam general surgery: Present: supple. Absent: lymphadenopathy, tenderness - Respiratory Respiratory exam: Present: wheezes (minimal in right lower lung). Absent: rales , rhonchi - Cardiovascular Cardiovascular exam: Present: RRR, +S1, +S2. Absent: clicks - GI/Abdominal GI/Abdominal exam: Present: normal bowel sounds, soft. Absent: guarding, tenderness - Extremities Exam Extremities exam: Present: normal inspection. Absent: joint swelling, tenderness - Back Exam Back exam: Present: normal inspection. Absent: tenderness - Neurological Exam Neurological exam: Present: alert, oriented X3. Absent: no focal deficits - Skin Skin exam: Present: dry, intact Internal Med - H&P Results - Labs CBC & Chem 7: 03/14/17 21:49 03/14/17 21:49 <Christin Matute - Last Filed: 03/15/17 04:40> Date of Encounter: 03/15/17 Internal Medicine - H&P: HPI History of present illness: Ms. Perry is a 61 year old female All Systems PM: A 10-system review of systems was performed and is negative for pertinent findings except as documented above in the HPI. - Constitutional Vitals: Temp Pulse Resp BP Pulse Ox 98 F 82 17 105/58 91 03/14/17 21:46 03/15/17 00:49 03/15/17 03:51 03/15/17 00:49 03/15/17 03:53 Internal Med - H&P Results - Labs CBC & Chem 7: 03/14/17 21:49 03/14/17 21:49 - Attending Attestation I examined this patient and my medical decision-making was reviewed with the Resident Physician. I agree with the documented findings, disposition and treatment plan as described except to the extent set forth below. 61 yo female with COPD, arrythmia s/p pacer who presents with low BP associated with respiratory symptoms. She had been nursing respiratory symptoms at home and had recently been on antibiotics and steroids. She was recently admitted towards the end of Jan for acute bronchitis. Uses 4 L NC at baseline. She presents for low BP - she took her BP which recorded a low BP reading of 62/ 42. In addition, she has been having respiratory symptoms with SOB that is worse on exertion, cough and non-specific fever. She smokes 1 PPD. She is not on chronic steroids and has been getting steroids frequently for bronchitis flare - the ED was also slightly concerned for adrenal insufficiency leading to low BP EKG personally reviewed with rate 107, noel, XR/XR chest 1V portable IMPRESSION: 1. Suggestion of patchy airspace disease bilaterally, greater on the right, suggestive of pneumonia. Again, some of that opacity could be artifactual. That should be followed to resolution. ROS 14 point review of systems reviewed as best as possible given presentation. Pertinent positive or negative as per HPI or otherwise reviewed as negative General - AAO x 3 Eyes - JANET. Eye lids intact. No scleral icterus Heart - Sinus tachy. RRR. S1 and S2 present. No added HS/murmurs appreciated. No elevated JVD appreciated. Lung - Adequate air entry b/l, Bibasal crackles. Scant wheezes appreciated GI - Soft, non-tender. No hepatosplenomegaly/ascites. BS+ - No CVA/suprapubic tenderness or palpable bladder distension A/P PNA - empiric vanc, cefepime IV, - check CT chest w/o contrast - check blood cx - trend lactate - duonebs - check RVP - send serologies - IVF Low BP Hyponatremia Possible secondary adrenal insufficiency Hydrocortisone 50mg q 6 Consult endocrine to assist with eval and eventual outpatient transition Hypomagnesia - IV Mag Tobacco abuse - patch On suboxone 8mg BID
[2017-03-15] MEDS ORDERED: Benzonatate 100 MG CAPSULE PO PRN (00:47)
--- NOTE | 2017-03-15 01:31 | Emergency Department Note ---
Disposition Clinical Impression: Healthcare-associated pneumonia, COPD exacerbation Hypotension Qualifiers: Hypotension type: other hypotension type Qualified Code(s): I95.89 - Other hypotension Leukocytosis Qualifiers: Leukocytosis type: unspecified Qualified Code(s): D72.829 - Elevated white blood cell count, unspecified Sepsis Qualifiers: Sepsis type: sepsis due to unspecified organism Qualified Code(s): A41.9 - Sepsis, unspecified organism Disposition: Admitted As Inpatient Condition: Fair Time of Disposition: 01:41 General Adult HPI - General Chief complaint: ED General Medical Stated complaint: low BP Time Seen by Provider: 03/14/17 21:45 Source: patient, EMS Limitations: no limitations Nursing Notes Reviewed: Yes Vital Signs Reviewed: Yes - History of Present Illness HPI Narrative: 61-year-old female brought in by EMS secondary to patient complained of hearing a loud rushing sound in her ears. Patient is found to be in an altered mental status and brought to the ED. IV was placed in route and patient started on 1 L normal saline. Patient was hypotensive upon arrival and still altered. Shortly after arrival patient became alert after receiving 500 mL normal saline. Patient explained that she is on Suboxone as well as recently being admitted and treated for pneumonia. Pain Scale: 0 - Related Data Home Medications Medication Instructions Recorded Confirmed Atorvastatin [Lipitor] 40 mg PO QAM 12/25/14 03/14/17 Buprenorphine HCl/Naloxone HCl 1 each PO BID 12/25/14 03/14/17 [Suboxone 8 mg-2 mg Sl Film] Diltiazem HCl [Diltiazem 24Hr Cd] 240 mg PO QAM 12/25/14 03/14/17 Lisinopril [Zestril] 40 mg PO QAM 12/25/14 03/14/17 Albuterol Sulfate [Ventolin Hfa] 2 puff IH Q4HR PRN 05/04/16 03/14/17 Amitriptyline [Elavil] 25 mg PO HS 02/13/17 03/14/17 Fluticasone/Vilanterol [Breo 1 puff IH DAILY 02/13/17 03/14/17 Ellipta 100-25 Mcg INH] Omeprazole [PriLOSEC] 40 mg PO DAILY 02/13/17 03/14/17 Tizanidine HCl 4 mg PO DAILY 02/13/17 03/14/17 Previous Rx's Medication Instructions Recorded Aspirin Enteric Coated [Aspirin EC] 81 mg PO DAILY #30 tablet. 12/28/14 Folic Acid 1 mg PO DAILY #30 tablet 02/14/17 Ipratropium/Albuterol Neb [Duoneb] 3 ml IH Q4HR #30 inhsol 02/14/17 Thiamine (B-1) [Vitamin B-1] 100 mg PO DAILY #30 tablet 02/14/17 Vitamin B Complex/Vit C/Vit E 1 each PO DAILY #30 tablet 02/14/17 [Stresstab] predniSONE [PredniSONE] 20 mg PO DAILY #10 tablet 02/14/17 Allergies Allergy/AdvReac Type Severity Reaction Status Date / Time No Known Allergies Allergy Verified 12/25/14 15:38 All systems ED: reviewed and negative except as stated. Review of Systems: As Per HPI Constitutional: Denies: fever ENT ED: Reports: congestion Cardiovascular: Denies: chest pain, palpitations Respiratory: Reports: cough, dyspnea, wheezes Gastrointestinal: Denies: abdominal pain, nausea, vomiting, diarrhea Genitourinary: Denies: urgency, dysuria, frequency Musculoskeletal: Denies: back pain, neck pain Integumentary: Denies: rash Neurological: Denies: headache Psychiatric: Denies: anxiety Endocrine: Reports: fatigue Past Medical History - Past Medical History Attestation: Yes The following information was validated with the patient. Source: patient Medical history: Reports: arthritis, asthma, COPD, GERD, hyperlipidemia, hypertension, other (pacemaker) Surgical history: Reports: hysterectomy, orthopedic, other, pacemaker/AICD, thyroidectomy Psychiatric history: Reports: anxiety [employer] history: Reports: bilateral tubal ligation - Social History Smoking Status: Current every day smoker Smokeless Tobacco Status: No Alcohol use: Reports: heavy Drug use: Reports: prescription drug abuse Physical Exam Vital Signs Temperature 98 F 03/14/17 21:46 Pulse Rate 93 03/14/17 21:46 Respiratory Rate 18 03/14/17 21:46 Blood Pressure 86/61 03/14/17 21:46 O2 Sat by Pulse Oximetry 95 03/14/17 21:46 Temperature 98 F 03/14/17 21:46 Pulse Rate 82 03/15/17 00:49 Respiratory Rate 16 03/15/17 00:49 Blood Pressure 105/58 03/15/17 00:49 O2 Sat by Pulse Oximetry 95 03/15/17 00:49 Oxygen Delivery Oxygen Delivery Nasal Cannula 61-year-old female very small frame at a BMI of 20.1 was alert and oriented 3 and GCS of 15 after fluid bolus of 5 mL normal saline. Patient is hypotensive at 60/45 with recheck at 86/61. - General Limitations: no limitations General appearance: alert, in no apparent distress - Head Head exam: atraumatic, normocephalic, normal inspection - Eye Eye exam: Present: normal appearance, PERRL, EOMI - ENT ENT exam: normal exam, normal oropharynx, mucous membranes moist - Neck Neck exam: Present: normal inspection, full ROM, trachea midline - Chest Chest inspection: Present: normal inspection, symmetric chest wall rise. Absent : tenderness, rash - Respiratory Respiratory exam: Present: wheezes, other (Bilateral rhonchi lung wang) - Cardiovascular Cardiovascular exam: Present: regular rate, normal rhythm, normal heart sounds - Abdominal Exam Abdominal exam: Present: soft, Non-Tender. Absent: tenderness, distention, guarding, rebound, rigidity - Extremities Exam Extremities exam: Present: normal inspection, full ROM, normal capillary refill. Absent: tenderness, pedal edema Course Vital Signs Temperature 98 F 03/14/17 21:46 Pulse Rate 93 03/14/17 21:46 Respiratory Rate 18 03/14/17 21:46 Blood Pressure 86/61 03/14/17 21:46 O2 Sat by Pulse Oximetry 95 03/14/17 21:46 Temperature 98.2 F 03/15/17 11:18 Pulse Rate 74 03/15/17 11:18 Respiratory Rate 16 03/15/17 11:18 Blood Pressure 133/80 03/15/17 11:18 O2 Sat by Pulse Oximetry 92 03/15/17 11:18 Oxygen Delivery Oxygen Delivery Nasal Cannula Medical Decision Making - [facility] Narrative Medical decision making narrative: Patient presents with hypotension in the setting of history of pneumonia with persistent rhonchus sounding lungs. Upon evaluation of patient's labs patient has a new elevation of WBC at 15.6 in the setting of hypotension and pneumonia for sepsis. Patient started on vancomycin, levofloxacin and Zosyn to cover for healthcare associated pneumonia. Patient received a total of 2 L of IV normal saline here is currently normotensive at 110/68 with complete return of mental status. Patient is able to stand and use the bathroom without issue on her own. Plan is for admission for continued and IV antibiotic therapy. Patient understands and agrees to decision to admit Dr. Viveros the hospitalist has accepted patient for admission - Lab Data Lab results reviewed: Yes I reviewed the patient's lab results. Lab results narrative: Short CBC 03/14/17 Range/Units 21:49 WBC 15.6 H (4.3-11.1) K/mcL Hgb 11.2 L (11.5-15.4) g/dL Hct 32.9 L (35.3-44.9) % Plt Count 412 H (140-400) K/mcL Neutrophils # 11.3 H (1.6-8.9) K/mcL BMP 03/14/17 Range/Units 21:49 Sodium 130 L (136-145) mEq/L Potassium 3.7 (3.5-4.5) mEq/L Chloride 95 L (98-109) mEq/L Carbon Dioxide 24 (19-29) mEq/L BUN 6 L (7-20) mg/dL Creatinine 0.68 (0.57-1.11) mg/dL Glucose 89 (70-99) mg/dL Calcium 8.4 L (8.6-10.8) mg/dL Cardiac Enzymes 03/14/17 Range/Units 21:49 Troponin I 0.01 (0-0.03) ng/mL Liver Function 03/14/17 Range/Units 21:49 Total Bilirubin 0.4 (0.2-1.2) mg/dL Direct Bilirubin 0.2 (0.0-0.5) mg/dL AST 35 H (5-34) Units/L ALT 23 (0-55) Units/L Alkaline Phosphatase 111 (38-126) Units/L Albumin 2.8 L (3.5-5.0) g/dL Urine 03/14/17 Range/Units 23:02 Urine Color Yellow (Yellow) Urine Clarity Clear (Clear) Urine pH 6.5 (5.0-8.0) pH Units Ur Specific [place] 1.008 L (1.010-1.025) Urine Protein Negative (Neg-Trace) mg/dL Urine Glucose (UA) Normal (Normal) mg/dL Result diagrams: 03/15/17 04:43 03/15/17 04:43 Lab Results 03/14/17 03/14/17 03/14/17 Range/Units 21:49 21:49 21:49 WBC 15.6 H (4.3-11.1) K/mcL RBC 3.61 L (3.82-4.97) M/mcL Hgb 11.2 L (11.5-15.4) g/dL Hct 32.9 L (35.3-44.9) % MCV 91.1 (83.0-100.0) fL MCH 31.0 (28.0-33.3) pg MCHC 34.0 (31.6-35.5) g/dL RDW 12.3 (11.5-14.5) % Plt Count 412 H (140-400) K/mcL MPV 8.7 L (9.4-12.4) fL Immature Gran % 0.6 (0-4) % Seg Neutrophils % 72.4 % Lymphocytes % 17.2 % Monocytes % 8.6 % Eosinophils % 0.9 % Basophils % 0.3 % Neutrophils # 11.3 H (1.6-8.9) K/mcL Lymphocytes # 2.7 (0.6-4.6) K/mcL Monocytes # 1.3 (0.0-1.3) K/mcL Eosinophils # 0.1 (0.0-0.6) K/mcL Basophils # 0.1 (0.0-0.2) K/mcL PT 10.9 (9.4-12.1) Seconds INR 1.0 APTT 28.3 (26.0-36.0) Seconds Sodium 130 L (136-145) mEq/L Potassium 3.7 (3.5-4.5) mEq/L Chloride 95 L (98-109) mEq/L Carbon Dioxide 24 (19-29) mEq/L BUN 6 L (7-20) mg/dL Creatinine 0.68 (0.57-1.11) mg/dL Est GFR ( Amer) > 60 (> 60) Est GFR (Non-Af Amer) > 60 (> 60) BUN/Creatinine Ratio 9 (6-26) Glucose 89 (70-99) mg/dL Calculated Osmolality 267 L (280-300) Lactic Acid (0.5-2.2) mmol/L Calcium 8.4 L (8.6-10.8) mg/dL Phosphorus 3.3 (2.3-4.7) mg/dL Magnesium 1.5 L (1.6-2.6) mg/dL Total Bilirubin 0.4 (0.2-1.2) mg/dL Direct Bilirubin 0.2 (0.0-0.5) mg/dL Indirect Bilirubin 0.2 (0.0-1.2) mg/dL AST 35 H (5-34) Units/L ALT 23 (0-55) Units/L Alkaline Phosphatase 111 (38-126) Units/L Troponin I (0-0.03) ng/mL Serum Total Protein 6.0 (6.0-8.3) g/dL Albumin 2.8 L (3.5-5.0) g/dL Globulin 3.2 (2.4-3.5) g/dL Albumin/Globulin Ratio 0.9 L (1.1-2.2) Urine Color (Yellow) Urine Clarity (Clear) Urine pH (5.0-8.0) pH Units Ur Specific [place] (1.010-1.025) Urine Protein (Neg-Trace) mg/dL Urine Glucose (UA) (Normal) mg/dL Urine Ketones (Negative) mg/dL Urine Blood (Negative) Urine Nitrite (Negative) Urine Bilirubin (Negative) Urine Urobilinogen (Normal) mg/dL Ur Leukocyte Esterase (Negative) Urine Microscopic RBC (0-3) per hpf Urine Microscopic WBC (0-3) per hpf Ur Squamous Epith Cells (None-Few) per lpf Urine Bacteria (None-Few) per hpf Hyaline Casts (None-Few) per lpf Ur Culture Indicated? (NO) 03/14/17 03/14/17 03/14/17 Range/Units 21:49 21:49 23:02 WBC (4.3-11.1) K/mcL RBC (3.82-4.97) M/mcL Hgb (11.5-15.4) g/dL Hct (35.3-44.9) % MCV (83.0-100.0) fL MCH (28.0-33.3) pg MCHC (31.6-35.5) g/dL RDW (11.5-14.5) % Plt Count (140-400) K/mcL MPV (9.4-12.4) fL Immature Gran % (0-4) % Seg Neutrophils % % Lymphocytes % % Monocytes % % Eosinophils % % Basophils % % Neutrophils # (1.6-8.9) K/mcL Lymphocytes # (0.6-4.6) K/mcL Monocytes # (0.0-1.3) K/mcL Eosinophils # (0.0-0.6) K/mcL Basophils # (0.0-0.2) K/mcL PT (9.4-12.1) Seconds INR APTT (26.0-36.0) Seconds Sodium (136-145) mEq/L Potassium (3.5-4.5) mEq/L Chloride (98-109) mEq/L Carbon Dioxide (19-29) mEq/L BUN (7-20) mg/dL Creatinine (0.57-1.11) mg/dL Est GFR ( Amer) (> 60) Est GFR (Non-Af Amer) (> 60) BUN/Creatinine Ratio (6-26) Glucose (70-99) mg/dL Calculated Osmolality (280-300) Lactic Acid 2.1 (0.5-2.2) mmol/L Calcium (8.6-10.8) mg/dL Phosphorus (2.3-4.7) mg/dL Magnesium (1.6-2.6) mg/dL Total Bilirubin (0.2-1.2) mg/dL Direct Bilirubin (0.0-0.5) mg/dL Indirect Bilirubin (0.0-1.2) mg/dL AST (5-34) Units/L ALT (0-55) Units/L Alkaline Phosphatase (38-126) Units/L Troponin I 0.01 (0-0.03) ng/mL Serum Total Protein (6.0-8.3) g/dL Albumin (3.5-5.0) g/dL Globulin (2.4-3.5) g/dL Albumin/Globulin Ratio (1.1-2.2) Urine Color Yellow (Yellow) Urine Clarity Clear (Clear) Urine pH 6.5 (5.0-8.0) pH Units Ur Specific [place] 1.008 L (1.010-1.025) Urine Protein Negative (Neg-Trace) mg/dL Urine Glucose (UA) Normal (Normal) mg/dL Urine Ketones Negative (Negative) mg/dL Urine Blood Negative (Negative) Urine Nitrite Negative (Negative) Urine Bilirubin Negative (Negative) Urine Urobilinogen Normal (Normal) mg/dL Ur Leukocyte Esterase Moderate H (Negative) Urine Microscopic RBC 0-3 (0-3) per hpf Urine Microscopic WBC 5-15 H (0-3) per hpf Ur Squamous Epith Cells Many H (None-Few) per lpf Urine Bacteria None Seen (None-Few) per hpf Hyaline Casts None Seen (None-Few) per lpf Ur Culture Indicated? YES A (NO) - Radiology Data Radiology results reviewed: Yes I reviewed the patient's radiology results. Chest X-Ray 03/14/17 21:47 IMPRESSION: 1. Suggestion of patchy airspace disease bilaterally, greater on the right, suggestive of pneumonia. Again, some of that opacity could be artifactual. That should be followed to resolution. D/ / Pascual Joya MD / Pascual Joya MD Interpreting Provider: Pascual Joya MD
[2017-03-15] MEDS: 0.9 % Sodium Chloride 1,000 ML IVC SCH ×3 (02:01→12:19)
[2017-03-15] MEDS ORDERED: Vancomycin 1,000 MG in D5% in Water 250 ML IVPB SCH (02:30)
[2017-03-15] MEDS: Ipratropium/Albuterol Neb 3 ML IH SCH ×4 (03:50→23:38)
[2017-03-15 05:14] LABS: Basophils % 0.3 %; Eosinophils # 0.1 K/mcL (0.0-0.6); Eosinophils % 0.6 %; Hematocrit 33.2 % (35.3-44.9); Hemoglobin 10.8 g/dL (11.5-15.4); Immature Granulocytes % 0.7 % (0-4); Lymphocytes # 0.8 K/mcL (0.6-4.6); Lymphocytes % 6.5 %; Mean Corpuscular HGB Conc 32.5 g/dL (31.6-35.5); Mean Corpuscular Hemoglobin 30.1 pg (28.0-33.3); Mean Corpuscular Volume 92.5 fL (83.0-100.0); Mean Platelet Volume 8.8 fL (9.4-12.4); Monocytes # 0.3 K/mcL (0.0-1.3); Monocytes % 2.9 %; Neutrophils # 10.3 K/mcL (1.6-8.9); Platelet Count 396 K/mcL (140-400); Red Blood Count 3.59 M/mcL (3.82-4.97); Red Cell Distribution Width 12.3 % (11.5-14.5)
[2017-03-15 05:21] LABS: BUN/Creatinine Ratio 9 (6-26); Calcium 7.4 mg/dL (8.6-10.8); Carbon Dioxide 23 mEq/L (19-29); Chloride 105 mEq/L (98-109); Glucose 124 mg/dL (70-99); Magnesium 2.5 mg/dL (1.6-2.6); Osmolality,Calculated 279 (280-300); Potassium 3.7 mEq/L (3.5-4.5); Sodium 135 mEq/L (136-145); eGFR For African Americans > 60 (> 60); eGFR For Non-African Americans > 60 (> 60)
[2017-03-15 05:25] LABS: Blood Urea Nitrogen 5 mg/dL (7-20)
[2017-03-15] MEDS ORDERED: Cefepime HCl 2,000 MG in D5% in Water (Mini-Bag+) 100 ML IVPB SCH (06:00)
[2017-03-15] MEDS: Cefepime HCl 2,000 MG in Water for inj. (sterile) 20 ML IVP SCH ×2 (06:27→18:05)
[2017-03-15] MEDS: *HR* Enoxaparin 40 MG/0.4 ML SYRINGE SQ SCH (06:27)
[2017-03-15] MEDS: (Breo Ellipta 100-25 Mcg Inh) IH SCH (08:50)
[2017-03-15] MEDS: Thiamine (B-1) 100 MG TABLET PO SCH (08:50)
[2017-03-15] MEDS: (Suboxone 8 Mg-2 Mg SL) PO SCH (08:50)
[2017-03-15] MEDS: tiZANidine 4 MG TABLET PO SCH (08:50)
[2017-03-15] MEDS: Nicotine 21 MG PATCH.TD24 TD SCH (08:50)
[2017-03-15] MEDS: Hydrocortisone Sodium Succ 100 MG/2 ML VIAL IVP SCH ×2 (08:50→15:10)
[2017-03-15] MEDS: Aspirin Enteric Coated 81 MG Tablet PO SCH (08:50)
[2017-03-15] MEDS: Vancomycin 750 MG in D5% in Water 250 ML IVPB SCH (15:10)
--- NOTE | 2017-03-15 16:30 | Internal Med Progress Note ---
Date of Encounter: 03/15/17 Time of Encounter: 10:50 - Assessment and plan (1) Pneumonia Current Visit: Yes Status: Suspected Assessment and plan: Healthcare associated pneumonia. Continue cefepime and vancomycin. We will add Levaquin to treat atypical organisms. Check urine for Legionella, Mycoplasma and strep antigens. Also check respiratory infection panel. Qualifiers: Pneumonia type: due to methicillin-resistant Staphylococcus aureus (MRSA) Laterality: bilateral Lung location: unspecified part of lung Qualified Code (s): J15.212 - Pneumonia due to Methicillin resistant Staphylococcus aureus (2) Sepsis Current Visit: Yes Status: Acute Assessment and plan: Due to pneumonia. Hypotension has resolved. We will stop steroids as no clear signs of adrenal insufficiency. Follow culture results. Qualifiers: Sepsis type: sepsis due to unspecified organism Qualified Code(s): A41.9 - Sepsis, unspecified organism (3) COPD (chronic obstructive pulmonary disease) Current Visit: Yes Status: Chronic Assessment and plan: Continue scheduled bronchodilators. O2 supplementation as needed. Qualifiers: COPD type: emphysema Emphysema type: panlobular Qualified Code(s): J43.1 - Panlobular emphysema (4) DVT prophylaxis Current Visit: Yes Status: Acute Assessment and plan: Continue Lovenox (5) Hypomagnesemia Current Visit: Yes Status: Resolved Assessment and plan: Improved with repletion (6) Hyponatremia Current Visit: Yes Status: Acute Assessment and plan: Improving. Continue IV normal saline infusion (7) Opiate dependence Current Visit: Yes Status: Chronic Assessment and plan: Continue Suboxone Qualifiers: Substance use status: uncomplicated Qualified Code(s): F11.20 - Opioid dependence, uncomplicated - Subjective Interval history: Patient is lying in bed. Comfortable. Feels much better compared to yesterday. Does continue to have cough with sputum production. Shortness of breath is improving. No fever or chills reported Since this morning. - Constitutional Vitals: Temp Pulse Resp BP Pulse Ox 98.1 F 90 16 158/91 94 03/15/17 15:32 03/15/17 15:32 03/15/17 15:40 03/15/17 15:32 03/15/17 15:40 General appearance: Present: cooperative, A&O X 3, no acute distress, answers questions appropriately - Neck Neck exam general surgery: Present: supple, trachea midline. Absent: lymphadenopathy - Respiratory Respiratory exam: Present: prolonged expiratory phase. Absent: accessory muscle use, rales, rhonchi, wheezes - Cardiovascular Cardiovascular exam: Present: RRR, +S1, +S2. Absent: diastolic murmur, gallop, rubs, systolic murmur - GI/Abdominal GI/Abdominal exam: Present: normal bowel sounds, soft, no peritoneal signs. Absent: distended, tenderness - Extremities Exam Extremities exam: Present: warm, radial pulses palpable and symmetrical. Absent : calf tenderness, cyanotic, pedal edema - Neurological Exam Neurological exam: Present: alert, oriented X3, no focal deficits. Absent: facial droop, speech deficit Internal Medicine: Result - Labs CBC & Chem 7: 03/15/17 04:43 03/15/17 04:43 Labs: Short CBC 03/15/17 Range/Units 04:43 WBC 11.6 H (4.3-11.1) K/mcL Hgb 10.8 L (11.5-15.4) g/dL Hct 33.2 L (35.3-44.9) % Plt Count 396 (140-400) K/mcL Neutrophils # 10.3 H (1.6-8.9) K/mcL BMP 03/15/17 04:43 Sodium 135 L Potassium 3.7 Chloride 105 Carbon Dioxide 23 BUN 5 L Creatinine 0.55 L Glucose 124 H Calcium 7.4 L - ABG Interpretation ABG results: PT/INR, D-dimer PT 10.9 Seconds (9.4-12.1) 03/14/17 21:49 - Impressions Impressions Chest CT 03/15/17 07:30 IMPRESSION: Interval development of ground-glass and interstitial opacities. This may be a manifestation of pulmonary edema. There are also small bilateral pleural effusions. As differential, atypical infection (such is viral or mycoplasma etiologies) or alveolar proteinosis are considered. Stable, moderately extensive emphysema. Increased density of breast parenchyma since 02/13/2017. Patient has had recent mammographic workup and increased density may be iatrogenic. Continued mammographic and clinical surveillance is recommended. D/ / Sohail Orona MD / Sohail Orona MD Interpreting Provider: Sohail Orona MD Consult Discharge Plan - Plan Referrals: Alvin Guevara MD [Primary Care Provider] -
[2017-03-15] MEDS: Levofloxacin 750 MG/150 ML 750 MG/150 ML BAG IVPB SCH (18:05)
[2017-03-15 18:14] LABS: ABG Base Excess 0 mEq/L (-2 to 3); ABG HCO3 25 mEq/L (21-27); ABG Oxygen Saturation 97 % (95-98); ABG PCO2 41 mmHg (35-45); ABG PO2 87 mmHg (85-104); ABG TCO2 26 mEq/L (20-26)
[2017-03-15 18:33] LABS: Adenovirus Not Detected (Not Detect); Bordetella Pertussis Not Detected (Not Detect); Chlamydophila pneumoniae Not Detected (Not Detect); Coronavirus 229E Not Detected (Not Detect); Coronavirus HKU1 Not Detected (Not Detect); Coronavirus NL63 Not Detected (Not Detect); Coronavirus OC43 Not Detected (Not Detect); Human Metapneumovirus Not Detected (Not Detect); Human Rhinovirus/Enterovirus Not Detected (Not Detect); Influenza A Subtype 2009 H1 Not Detected (Not Detect); Influenza A Untypeable Not Detected (Not Detect); Influenza B Not Detected (Not Detect); Mycoplasma pneumoniae Not Detected (Not Detect); Parainfluenza Virus 1 Not Detected (Not Detect); Parainfluenza Virus 2 Not Detected (Not Detect); Parainfluenza Virus 3 Not Detected (Not Detect); Parainfluenza Virus 4 Not Detected (Not Detect); Respiratory Syncytial Virus Not Detected (Not Detect)
[2017-03-16] MEDS: (Suboxone 8 Mg-2 Mg SL) PO SCH ×2 (02:08→09:14)
[2017-03-16] MEDS: 0.9 % Sodium Chloride 1,000 ML IVC SCH ×2 (03:10→12:19)
[2017-03-16] MEDS: Vancomycin 750 MG in D5% in Water 250 ML IVPB SCH (03:11)
[2017-03-16] MEDS: Ipratropium/Albuterol Neb 3 ML IH SCH ×3 (04:05→15:46)
[2017-03-16 04:53] LABS: Basophils % 0.1 %; Eosinophils % 0.1 %; Hemoglobin 10.8 g/dL (11.5-15.4); Immature Granulocytes % 0.6 % (0-4); Lymphocytes # 1.9 K/mcL (0.6-4.6); Lymphocytes % 11.9 %; Mean Corpuscular HGB Conc 32.7 g/dL (31.6-35.5); Mean Corpuscular Hemoglobin 30.4 pg (28.0-33.3); Mean Platelet Volume 8.9 fL (9.4-12.4); Monocytes # 0.7 K/mcL (0.0-1.3); Monocytes % 4.5 %; Neutrophils # 12.9 K/mcL (1.6-8.9); Platelet Count 378 K/mcL (140-400); Red Blood Count 3.55 M/mcL (3.82-4.97); Red Cell Distribution Width 12.1 % (11.5-14.5); Segmented Neutrophils % 82.8 %
[2017-03-16 04:57] LABS: BUN/Creatinine Ratio 12 (6-26); Blood Urea Nitrogen 7 mg/dL (7-20); Calcium 7.7 mg/dL (8.6-10.8); Carbon Dioxide 24 mEq/L (19-29); Chloride 103 mEq/L (98-109); Glucose 184 mg/dL (70-99); Magnesium 1.5 mg/dL (1.6-2.6); Osmolality,Calculated 285 (280-300); Potassium 2.9 mEq/L (3.5-4.5); Sodium 136 mEq/L (136-145); eGFR For African Americans > 60 (> 60); eGFR For Non-African Americans > 60 (> 60)
[2017-03-16] MEDS: *HR* Enoxaparin 40 MG/0.4 ML SYRINGE SQ SCH (05:31)
[2017-03-16] MEDS: Cefepime HCl 2,000 MG in Water for inj. (sterile) 20 ML IVP SCH (05:31)
[2017-03-16 07:06] VITALS: BP 157/82
[2017-03-16] MEDS ORDERED: Potassium Chloride 20 MEQ, Lidocaine 1% 2 ML in D5% in Water 250 ML IVPB ONE (07:49)
[2017-03-16] MEDS: Aspirin Enteric Coated 81 MG Tablet PO SCH (09:11)
[2017-03-16] MEDS: tiZANidine 4 MG TABLET PO SCH (09:11)
[2017-03-16] MEDS: Thiamine (B-1) 100 MG TABLET PO SCH (09:11)
[2017-03-16] MEDS: Levofloxacin 750 MG/150 ML 750 MG/150 ML BAG IVPB SCH (09:12)
[2017-03-16] MEDS: Nicotine 21 MG PATCH.TD24 TD SCH (09:13)
[2017-03-16] MEDS: (Breo Ellipta 100-25 Mcg Inh) IH SCH (09:13)
--- NOTE | 2017-03-16 12:40 | Discharge Summary ---
Date of Encounter: 03/16/17 Time of Encounter: 10:15 - Discharge Diagnosis (1) Pneumonia Priority: Primary Status: Acute Qualifiers: Pneumonia type: due to unspecified organism Laterality: bilateral Lung location: unspecified part of lung Qualified Code(s): J18.9 - Pneumonia, unspecified organism (2) Sepsis Priority: Secondary Status: Acute Qualifiers: Sepsis type: sepsis due to unspecified organism Qualified Code(s): A41.9 - Sepsis, unspecified organism (3) COPD (chronic obstructive pulmonary disease) Priority: Secondary Status: Chronic Qualifiers: COPD type: emphysema Emphysema type: panlobular Qualified Code(s): J43.1 - Panlobular emphysema (4) DVT prophylaxis Priority: Secondary Status: Acute (5) Hypomagnesemia Priority: Secondary Status: Resolved (6) Hyponatremia Priority: Secondary Status: Acute (7) Opiate dependence Priority: Secondary Status: Chronic Qualifiers: Substance use status: uncomplicated Qualified Code(s): F11.20 - Opioid dependence, uncomplicated - Discharge Medications Prescriptions: Benzonatate [Tessalon] 100 mg PO TID PRN #30 capsule PRN Reason: Cough levoFLOXacin [Levaquin] 750 mg PO DAILY #7 tablet Home Medications: Atorvastatin [Lipitor] 40 mg PO QAM 12/25/14 [History] Buprenorphine HCl/Naloxone HCl [Suboxone 8 mg-2 mg Sl Film] 1 each PO BID [History] Diltiazem HCl [Diltiazem 24Hr Cd] 240 mg PO QAM 12/25/14 [History] Lisinopril [Zestril] 40 mg PO QAM 12/25/14 [History] Aspirin Enteric Coated [Aspirin EC] 81 mg PO DAILY #30 tablet. 12/28/14 [Rx] Albuterol Sulfate [Ventolin Hfa] 2 puff IH Q4HR PRN 05/04/16 [History] Amitriptyline [Elavil] 25 mg PO HS 02/13/17 [History] Fluticasone/Vilanterol [Breo Ellipta 100-25 Mcg INH] 1 puff IH DAILY 02/13/17 [ History] Omeprazole [PriLOSEC] 40 mg PO DAILY 02/13/17 [History] Tizanidine HCl 4 mg PO DAILY 02/13/17 [History] Folic Acid 1 mg PO DAILY #30 tablet 02/14/17 [Rx] Ipratropium/Albuterol Neb [Duoneb] 3 ml IH Q4HR #30 inhsol 02/14/17 [Rx] Thiamine (B-1) [Vitamin B-1] 100 mg PO DAILY #30 tablet 02/14/17 [Rx] Vitamin B Complex/Vit C/Vit E [Stresstab] 1 each PO DAILY #30 tablet 02/14/17 [ Rx] predniSONE [PredniSONE] 20 mg PO DAILY #10 tablet 02/14/17 [Rx] Benzonatate [Tessalon] 100 mg PO TID PRN #30 capsule 03/16/17 [Rx] levoFLOXacin [Levaquin] 750 mg PO DAILY #7 tablet 03/16/17 [Rx] Allergies/Adverse Reactions: 3 Allergy/AdvReac Type Severity Reaction Status Date / Time No Known Allergies Allergy Verified 12/25/14 15:38 Procedures/tests Complete & Pending: Procedures Performed prior 72 hours Category Date Time Status CT chest wo con [CT] Routine Cat Scan 03/15/17 07:30 Completed Date of admission: 03/14/17 23:19 Primary care physician: Alvin Guevara MD Consults: 03/15/17 00:01 Consult to Endocrinology [CONS] Routine Consulting Provider: Endocrinology & Diabetes Mercedes Reason for Consult: please eval for concern for secondary adrenal insufficiency Call Completed: No Discharging clinician: Sadiq Collins Anticipated date of discharge: 03/16/17 - Patient Status Disposition: Home, Self-Care Condition: Good Functional capacity at discharge: independent ambulation Overall status at discharge: patient is progressing back to baseline - Discharge Instructions Instructions: Benzonatate (By mouth), Levofloxacin (By mouth), Sepsis (DC), Pneumonia (DC) Follow Up With: Annette Saravia MD [Partnered Physician] - (in 1-2 weeks) Alexis Verma Jr, SUPERVISORY CIVIL ENGINEER [Advanced Practice Nurse] - 03/28/17 3:30 pm Alvin Guevara MD [Primary Care Provider] - (in 1-2 weeks) Forms: ED Satisfaction Letter, Work/School Release - Diet and Activity Activity: increase activity as tolerated, wear oxygen at all times Diet: low fat, low cholesterol, low salt diet Hospital course: Ms. Perry is a 61 year old female patient with history of COPD, hypertension , permanent pacemaker and hyperlipidemia who presented to the ER with complaints of low blood pressure along with cough and sputum production. She had been discharged from the hospital last month after being treated for COPD exacerbation and acute bronchitis. She had been discharged on Augmentin and prednisone at that time. Her symptoms had initially improved but her cough lingered and eventually got worse. Chest x-ray done in the ER showed patchy bilateral air space disease. CT scan of the chest done in the ER showed bilateral ground glass and interstitial opacities with small bilateral pleural effusions. Differential diagnoses includes atypical infections/pulmonary edema or alveolar proteinosis. Patient was started on treatment for sepsis and pneumonia with broad-spectrum antibiotics. Her symptoms improved with this treatment plan along with use of scheduled bronchodilators. Initially there was concern for adrenal insufficiency due to use of corticosteroids. However patient's blood pressure improved with IV hydration and so corticosteroids were stopped. She has improved much quicker than expected and wishes to go home today. She is on her baseline oxygen and is clinically stable to be discharged home. She will be discharged on oral levofloxacin to complete treatment course. Her urine antigens for Legionella and strep pneumoniae were negative. Mycoplasma antigen is currently pending. Respiratory infection panel was entirely negative. She is advised to follow up with Dr. 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 - Time Spent with Patient Total time spent providing and/or coordinating discharge services: Greater than 30 minutes (35 min) - Constitutional Vitals: Temp Pulse Resp BP Pulse Ox 97.6 F 97 18 157/82 97 03/16/17 07:00 03/16/17 07:00 03/16/17 10:43 03/16/17 07:00 03/16/17 10:43 General appearance: Present: cooperative, A&O X 3, no acute distress, answers questions appropriately - Neck Neck exam general surgery: Present: supple, trachea midline. Absent: lymphadenopathy - Respiratory Respiratory exam: Present: CTAB, prolonged expiratory phase. Absent: accessory muscle use, rales, rhonchi, wheezes - Cardiovascular Cardiovascular exam: Present: RRR, +S1, +S2. Absent: diastolic murmur, gallop, rubs, systolic murmur - GI/Abdominal GI/Abdominal exam: Present: normal bowel sounds, soft, no peritoneal signs. Absent: distended, tenderness - Extremities Exam Extremities exam: Present: warm, radial pulses palpable and symmetrical. Absent : calf tenderness, cyanotic, pedal edema - Neurological Exam Neurological exam: Present: alert, oriented X3, no focal deficits. Absent: facial droop, speech deficit - Skin Skin exam: Present: dry, intact
[2017-03-16] MEDS ORDERED: Aminoglycoside Consult 1 EACH MC ONE (15:59)
--- NOTE | 2017-03-17 15:54 | Electrocardiograph Report ---
[address] [address] Test Date: 2017-03-14 Pat Name: Mili Perry Department: [id number] Room: 2NE18 Gender: F Inspector [employer]: TMR : 1955 Requested By: Jonathan Dias Order Number: [id number] Reading MD: Alvin Rojas Measurements Intervals [place] Rate: 107 P: 265 CA: 287 QRS: -71 QRSD: 162 T: 99 QT: 433 QTc: 496 Interpretive Statements ELECTRONIC VENTRICULAR PACEMAKER ABNORMAL RHYTHM ECG Electronically Signed On 03-17-2017 15:53:09 EST by Alvin Rojas
[2017-03-20 08:52] LABS: Mycoplasma pneumoniae IgG 0.23 U/L (<=0.09)
== END 2017-03-16 16:00 | disposition home or self-care (01) | DRG 720 ==
LOC: EMEROO 21:43 → 2NENU 21:43
PROVIDERS: ADMIT Pediatrics; ATTEND Internal Medicine